=== PATIENT | female | born 1975 | race Caucasian/White ===

== ENCOUNTER → 2017-03-24 22:12 | Outpatient (CLI) | payer BC, SELFPAY ==
[2017-03-25 00:50] LABS: Chlamydia Trachomatis by PCR Negative (Negative); Neisserai gonorrhoeae by PCR Negative (Negative); Probe Check PASS; Sample Adequacy Control PASS; Specimen Processing Control PASS
[2017-03-28 08:08] LABS: HPV APTIMA, High Risk Negative (Negative)
== END ==
PROVIDERS: Visit Provider Nurse Practitioner Women's Health
DX: Z12.4 Encounter for screening for malignant neoplasm of cervix (principal); Z11.3 Encounter for screening for infections with a predominantly sexual mode of transmission
CPT/HCPCS: 87491; 87591; 88175; G0145

== ENCOUNTER → 2018-06-30 07:30 | Outpatient (CLI) | payer OTHER, SELFPAY ==
--- NOTE | 2018-06-30 07:39 | BI_ITS ---
MAMMOGRAPHY - BILATERAL SCREENING REASON FOR EXAM: Female, 43 years old. Routine annual screening examination. PERTINENT HISTORY: Grandmother with breast cancer. Remote left excisional breast biopsy. TECHNIQUE: Digital bilateral breast kirill (3D mammographic acquisition) in the CC and MLO projections. 2-D mediolateral oblique (MLO) and craniocaudad (CC) views of both breasts were obtained. CAD: Full Field Digital Mammography with Computer Added Detection was performed. COMPARISON: Comparison is made with prior study dated November 30, 2012. FINDINGS: Breast Composition: The breasts are heterogeneously dense, which may obscure small masses. There are no dominant masses or suspicious calcifications. The previously seen fat-containing nodules in the central inferior aspect of the left breast have been excised. No new abnormality is seen. No other significant abnormalities are identified. BI/SCREENING MAMM (CAD), BILAT IMPRESSION: Stable bilateral screening mammogram. Yearly follow-up mammogram recommended. (A) ASSESSMENT CATEGORY: BIRADS Category 2: Benign. A letter regarding these results will be sent to the patient by the facility within 30 days. Approximately 10% of breast cancers are not detected by mammography. A normal mammogram should not delay biopsy of a clinically suspicious abnormality. [id number] Electronically Signed: Arnulfo Staley, at 10:25 EDT , Service support ,
[2018-07-08 15:53] LABS: HPV APTIMA, High Risk Negative (Negative)
== END ==
PROVIDERS: Referring Provider Obstetrics & Gynecology; Visit Provider Obstetrics & Gynecology
DX: Z12.31 Encounter for screening mammogram for malignant neoplasm of breast (principal); R87.610 Atypical squamous cells of undetermined significance on cytologic smear of cervix (ASC-US); Z80.3 Family history of malignant neoplasm of breast
CPT/HCPCS: 77063; 77067; 87624; 88175; G0145

== ENCOUNTER → 2019-09-09 12:45 | Outpatient (CLI) | payer OTHER, SELFPAY ==
[2018-06-30 08:49] VITALS: BMI 23.5
--- NOTE | 2019-09-09 12:47 | BI_ITS ---
MAMMOGRAPHY - BILATERAL SCREENING REASON FOR EXAM: Female, 44 years old. Routine annual screening examination. PERTINENT HISTORY: Grandmother with breast cancer. History of prior left excisional breast biopsy. TECHNIQUE: Digital bilateral breast angelina (3D mammographic acquisition) in the CC and MLO projections. 2-D mediolateral oblique (MLO) and craniocaudad (CC) views of both breasts were obtained. CAD: Full Field Digital Mammography with Computer Added Detection was performed. COMPARISON: Comparison is made with prior examination dated 06/30/2018 and 11/30/2012. FINDINGS: Breast Composition: The breasts are heterogeneously dense, which may obscure small masses. There are no dominant masses or suspicious calcifications. No other significant abnormalities are identified. There has been no significant change since the prior study. BI/SCREEN MAMM (CAD) W/ANGELINA BILAT IMPRESSION: Stable bilateral screening mammogram. Yearly follow-up mammogram recommended. (A) ASSESSMENT CATEGORY: BIRADS Category 1: Negative. A letter regarding these results will be sent to the patient by the facility within 30 days. Approximately 10% of breast cancers are not detected by mammography. A normal mammogram should not delay biopsy of a clinically suspicious abnormality. [id number] Electronically Signed: Arnulfo Staley, at 14:05 EDT , Service support ,
[2019-09-15 20:21] LABS: HPV APTIMA, High Risk Negative (Negative)
== END ==
PROVIDERS: Referring Provider Nurse Practitioner Women's Health; Visit Provider Nurse Practitioner Women's Health
DX: Z12.31 Encounter for screening mammogram for malignant neoplasm of breast (principal); Z12.4 Encounter for screening for malignant neoplasm of cervix
CPT/HCPCS: 77063; 77067; 87624; 88175; G0145

== ENCOUNTER → 2020-06-30 11:35 | Outpatient (CLI) | payer OTHER, SELFPAY ==
[2020-06-30 11:05] VITALS: BMI 23.5
[2020-06-30 11:53] LABS: Absolute Lymphocyte Count 1.51 X10^3/uL (0.83-4.51); Absolute Neutrophil Count 3.6 X10^3/uL (2.0-7.7); Basophil# 0.02 X10^3/uL; Basophil% 0.4 % (0-1); Eosinophil# 0.02 X10^3/uL; Eosinophils% 0.4 % (0-5); Hematocrit 37.3 % (37-47); Hemoglobin 11.5 g/dL (12.0-15.0); Lymphocyte # 1.51 X10^3/ul (0.83-4.51); Mean Corp Hgb Conc 30.8 g/dL (32-36); Mean Corpuscular Hgb 27.1 pg (27.0-32.0); Mean Corpuscular Volume 87.8 fL (81-99); Mean Platelet Vol. 9.4 fl (6.2-12.0); Monocyte# 0.39 X10^3/uL; NRBC Flagged by Analyzer 0 % (0-5); Neutrophil # 3.63 X10^3/uL (2.7-7.7); Neutrophil % 64.8 % (47-70); Platelet Count 262 K/mm3 (150-450); RBC Distribution Width CV 13.5 % (11.6-14.6); RBC Distribution Width SD 43.7 fl (35.1-43.9); Red Blood Count 4.25 M/mm3 (4.2-5.4); White Blood Count 5.6 K/mm3 (4.4-11.0)
[2020-06-30 12:14] LABS: Thyroid Stim Hormone (TSH) 0.91 uIU/mL (0.358-3.74)
== END ==
PROVIDERS: Referring Provider Obstetrics & Gynecology; Visit Provider Obstetrics & Gynecology
DX: N92.0 Excessive and frequent menstruation with regular cycle (principal)
CPT/HCPCS: 36415; 84443; 85025

== ENCOUNTER → 2020-07-17 16:16 | Outpatient (CLI) | payer OTHER, SELFPAY ==
[2020-06-30 11:05] VITALS: BMI 23.5
--- NOTE | 2020-07-17 16:19 | US_ITS ---
STUDY: ULTRASOUND OF THE FEMALE PELVIS - COMPLETE REASON FOR EXAM: Female, 45 years old. abnormal bleeding LMP: 07/11/2020 TECHNIQUE: Transabdominal and Transvaginal TECHNICAL QUALITY: Adequate. COMPARISON: None. FINDINGS: The uterus is retroverted and is in a midline position. The uterus measures 9.3 x 6.6 x 4.3 cm. There is a Nabothian cyst of the cervix. The endometrium measures 8 mm in thickness, and is hyperechoic. 9 mm round echogenic mass within the endometrial cavity worrisome for polyp or carcinoma in correlation with hysteroscopy would be useful. There is no demonstrated myometrial mass. I.U.D. - The patient does not have an I.U.D. The right ovary is visualized. The right ovary measures 2.3 x 2.8 x 1.9 cm. There is no right ovarian cyst or ovarian mass. There is no visualized right adnexal mass or complex lesion. There is normal arterial and normal venous vascularity. The left ovary is visualized. The left ovary measures 2.2 x 1.5 x 1.2 cm. There is no left ovarian cyst or ovarian mass. There is no visualized left adnexal mass or complex lesion. There is normal arterial and normal venous vascularity. There is no fluid in the cul-de-sac. The pre void volume of the bladder was ml. The post void volume of the bladder was ml. Polycystic ovary disease: No. US/Pelvic (Non ) IMPRESSION: 9 mm endometrial mass worrisome for polyp or carcinoma. Correlation with hysteroscopy would be useful. Electronically Signed: Sonu Gentile MD at 9:16 EDT Tel , Service support ,
--- NOTE | 2020-07-17 16:19 | US_ITS ---
STUDY: ULTRASOUND OF THE FEMALE PELVIS - COMPLETE REASON FOR EXAM: Female, 45 years old. abnormal bleeding LMP: 07/11/2020 TECHNIQUE: Transabdominal and Transvaginal TECHNICAL QUALITY: Adequate. COMPARISON: None. FINDINGS: The uterus is retroverted and is in a midline position. The uterus measures 9.3 x 6.6 x 4.3 cm. There is a Nabothian cyst of the cervix. The endometrium measures 8 mm in thickness, and is hyperechoic. 9 mm round echogenic mass within the endometrial cavity worrisome for polyp or carcinoma in correlation with hysteroscopy would be useful. There is no demonstrated myometrial mass. I.U.D. - The patient does not have an I.U.D. The right ovary is visualized. The right ovary measures 2.3 x 2.8 x 1.9 cm. There is no right ovarian cyst or ovarian mass. There is no visualized right adnexal mass or complex lesion. There is normal arterial and normal venous vascularity. The left ovary is visualized. The left ovary measures 2.2 x 1.5 x 1.2 cm. There is no left ovarian cyst or ovarian mass. There is no visualized left adnexal mass or complex lesion. There is normal arterial and normal venous vascularity. There is no fluid in the cul-de-sac. The pre void volume of the bladder was ml. The post void volume of the bladder was ml. Polycystic ovary disease: No. US/Transvaginal Non- IMPRESSION: 9 mm endometrial mass worrisome for polyp or carcinoma. Correlation with hysteroscopy would be useful. Electronically Signed: Soun Gentile MD at 9:16 EDT Tel , Service support ,
== END ==
LOC: US 16:17
PROVIDERS: Referring Provider Obstetrics & Gynecology; Visit Provider Obstetrics & Gynecology
DX: N93.9 Abnormal uterine and vaginal bleeding, unspecified (principal)
CPT/HCPCS: 76830; 76856

== ENCOUNTER → 2020-07-21 13:26 | Outpatient (CLI) | payer OTHER, SELFPAY ==
--- NOTE | 2020-07-21 | EMB_PTH ---
PATIENT: SHAMIKA THOMAS LOC: [facility] U#:[id number] AGE/SX: 49/F ROOM: RE07/21/[address]: Dr. Vilma Desai MD : 1975 BED: DIS: SPEC #: [id number] RECD: 07/21/20 13:23 STATUS: ALISIA CAMDEN #: [id number] LUCY: 07/21/20 00:[address]: Vilma Desai DEPT: SURGICAL PATHOLOGY RECD BY: Jeronimo Iniguez ENTERED: 07/24/20 09:55 SP TYPE: ENDOM BX/C TERE DR: No Primary Care Phys Tissues: Endometrium, NOS Procedures: Surgery Specimen Level IV HEADER OPERATION: Endometrial biopsy PRE-OP DIAGNOSIS: Abnormal uterine bleeding TISSUE SUBMITTED: Endometrial lining MICROSCOPIC DIAGNOSIS Endometrium, biopsy: Scant fragments of lower uterine endometrium with mild cystic change. Fragments of endocervix with squamous metaplasia and mild chronic inflammation. AM:jaya 07/25/2020 MICROSCOPIC DESCRIPTION Slides are reviewed. GROSS DESCRIPTION Received is one container labeled with the patient's name and not further designated. The specimen consists of multiple fragments of hemorrhagic soft tissue mixed with mucoid tissue that in aggregate measure 5 x 3 x 0.3 cm. The entire specimen is submitted in two cassettes. / SJ:jaya 07/24/20 TC:5 CPT: 93478
[2020-07-21 10:21] VITALS: BMI 23.5
== END ==
LOC: LABSPEC 13:27
PROVIDERS: Referring Provider Obstetrics & Gynecology; Visit Provider Obstetrics & Gynecology
DX: N93.9 Abnormal uterine and vaginal bleeding, unspecified (principal)
CPT/HCPCS: 88305

== ENCOUNTER 2020-08-01 12:22 | Day surgery (SDC) | payer OTHER, SELFPAY ==
[2020-07-21 10:21] VITALS: BMI 23.5
[2020-08-01] VITALS (7 sets, daily range): BP systolic 94–115; BP diastolic 55–72; PULSE 47–62; RESP 16; TEMP 36.1–36.9; O2SAT 94–100; BMI 25.7
--- NOTE | 2020-08-01 12:46 | HP.PCM.OB_ITS ---
HPI - General HPI Narrative SHAMIKA RODRIGUEZ, is a 45 F who presents for hysteroscopy, D&C, polypectomy, endometrial ablation for abnormal uterine bleeding PFSH PFSH Medical History Alcohol use Home Medications cetirizine 10 mg tablet 10 mg PO DAILY PRN 06/30/20 [History Last Taken Unknown] Allergy/AdvReac Type Severity Reaction Status Date / Time codeine Allergy Mild Other Verified 07/21/20 10:17 Family History Unknown Breast cancer great grandmother Mother Hyperlipidemia Father Hyperlipidemia Surgical History (Updated 07/26/20 @ 09:14 by Michelle Lopez) delivery delivered Hx of wisdom tooth extraction Social History Smoking Status: Never smoker alcohol intake: current details: social substance use type: does not use caffeine: Yes what type of physical activity do you participate in: running frequency: 3-4 times per week seatbelt use: always do you feel safe at home: Yes additional social history: - Works at [employer] History 2 Elective abortions Hx Para 4 Spontaneous abortions Hx # Term Pregnancies Ectopic pregnancies Hx # Pregnancies Multiple births 1 # of living children Past Pregnancies Del. Date Name GA/Weeks Outcome Route Bth Weight Infant Gen Labor Lgth Anesthesia Del Locatn Provider FOB Unknown 1998 Olivia live - full term Unknown 2004 Ralph León Taylor live - full term [place] ROS Eyes Eyes: Reports systems reviewed and no addt'l complaints, except as documented ENT HEENT: Reports systems reviewed and no addt'l complaints, except as documented Cardiovascular Cardiovascular: Reports systems reviewed and no addt'l complaints, except as documented Respiratory/Chest Respiratory/Chest: Reports systems reviewed and no addt'l complaints, except as documented Gastrointestinal Gastrointestinal: Reports systems reviewed and no addt'l complaints, except as documented Genitourinary Genitourinary: Reports systems reviewed and no addt'l complaints, except as documented Musculoskeletal Musculoskeletal: Reports systems reviewed and no addt'l complaints, except as documented Integumentary Integumentary: Reports systems reviewed and no addt'l complaints, except as documented Neurologic Neurologic: Reports systems reviewed and no addt'l complaints, except as documented Psychiatric Psychiatric: Reports systems reviewed and no addt'l complaints, except as docum ented Endocrine Endocrinology: Reports systems reviewed and no addt'l complaints, except as documented Hematologic/Lymphatic Hematologic/Lymphatic: Reports systems reviewed and no addt'l complaints, except as documented Allergic/Immunologic Allergic/Immunologic: Reports systems reviewed and no addt'l complaints, except as documented Vital Signs Vital Signs Vital Signs: Weight Body Mass Index (BMI) 23.5 Physical Exam Const alert, oriented x3, no apparent distress, average body habitus, healthy appearing and well nourished HEENT normocephalic and moist oral mucous membranes Head and Scalp: atraumatic Eyes PERRL and EOMs intact bilaterally Neck full ROM Resp normal respiratory effort, no retractions and no use of accessory muscles Cardio regular rate and regular rhythm GI soft to palpation, non-tender and non-distended Extremity normal to inspection and full ROM Skin no rashes or lesions noted Neuro no focal motor deficits and no sensory deficits noted Psych mental status grossly normal, affect normal, speech normal and activity/motor behavior normal Labs Labs Labs: Hct 37.3 % (37-47) Hgb 11.5 g/dL (12.0-15.0) L C.trachomatis DNA (PCR) Negative (Negative) Assessment & Plan (1) Abnormal uterine bleeding (AUB): COMMENT: US and TSH ordered. Interested in ablation PLAN: Patient resents for hysteroscopy, D&C, polypectomy, endometrial ablation Ultrasound done shows 9 mm thickened area and uterine lining concerning for polyp versus carcinoma on ultrasound read. On review of images, most consistent with endometrial polyp with low suspicion for malignancy. EMB done and showed scant fragments of normal endometrium Discussed with patient that I still feel that we can proceed with hysteroscopy, D&C, polypectomy, endometrial ablation. Discussed with patient that there is always a possibility that final pathology could return with evidence of malignancy or precancerous cells. Patient is aware that if this were to happen, there is a chance that she could require a hysterectomy for treatment of this and that this would require her to be referred to a specialist Patient desires endometrial ablation. I have discussed with the patient the risks, benefits, and alternatives of the procedure which include but are not limited to risks of anesthesia, bleeding, infection, possible damage to bowel, bladder, or surrounding vasculature which could lead to additional surgery to evaluate any complications. Will obtain sampling at the time of surgery. Aware that if this were to show hyperplasia or cancer, she could require a hysterectomy for treatment. Discussed that after ablation, we will not be able to obtain reliable sampling of the endometrium which could result in delay in diagnosis of hyperplasia or cancer if this develops in the future. Discussed ris k of failure and that if she were to begin having heavy bleeding again, the next step in management would be a hysterectomy. Patient agrees to procedure and wishes to proceed.
--- NOTE | 2020-08-01 12:49 | PCM.DC ---
Discharge Instructions Diet Discharge Diet: No restrictions Activity Discharge Activity: Return to Normal Activity and May Not Drive (while taking narcotic pain medications.) May resume sexual activity in: 4 weeks (nothing in the vagina for 4 weeks.) Dressing / Incision Call your doctor if you observe: Fever of 101 or Higher and Using more than 1 pad per hour Follow Up Care Test Results: Test results from this visit will be discussed in further detail at your follow-up appointment, if applicable. Discharge Plan Admission Primary Reason for Your Visit: Endometrial ablation Attending Provider: Vilma Desai Primary Care Provider: Tony Denton,[place] Primary Instructions Patient Instructions: Endometrial Ablation Discharge Orders/Prescriptions Prescriptions: New ibuprofen 800 mg tablet 800 mg PO Q8H PRN (Reason: pain) Qty: 30 RF: 1 Continued cetirizine [Zyrtec] 10 mg tablet 10 mg PO DAILY PRN (Reason: allergies) RF: 0 Referrals / Follow Up: Care Physician,No Primary [Primary Care Provider] - Disposition Disposition (needs filled in before D/C Order can be placed): Home, Self Care
[2020-08-01] MEDS: Lactated Ringers 1,000 ML 75 ML IV (12:50)
--- NOTE | 2020-08-01 12:50 | PCM.OPRPT ---
Problems Associated Problem List Diagnoses (1) Abnormal uterine bleeding (AUB): Report of Operation Date of Procedure: 08/01/20 Pre-Operative Diagnosis: AUB, Endometrial polyp Post-Operative Diagnosis: Same Surgery/Procedure Performed:: Hysteroscopy, D&C, polypectomy, endometrial ablation Description of Surgical Findings:: Endometrial polyp, otherwise normal uterine cavity. Both tubal ostia visible. Surgeon: Vilma Desai out and out cigar maker hand: None Type of Anesthesia: MAC Specimen's removed: EMC, Polyp Estimated Blood Loss (mL): 10 Description of Procedure: Patient was taken to the operating where anesthesia with difficulty. She was prepped and draped in the dorsolithotomy position with yellowfin stirrups. A weighted speculum was placed in the posterior aspect of the vagina and the anterior lip of the cervix was grasped with a single-tooth tenaculum. Cervix was sequentially dilated to accommodate a 5 mm hysteroscope. The hysteroscope was introduced into the uterine cavity and the above findings were noted. The hysteroscope was then removed. Polyp forceps were used to remove the polyp and a sharp curettage was performed. The total cavity length was found to be 5. The Sis device was inserted into the uterine cavity and seated within the cavity. Air was introduced to create a cervical seal and the seal was noted to be adequate. The Sis device was activated and 2 safety checks were passed. The ablation was performed for 120 seconds. The Sis device was removed from the uterine cavity. The tenaculum was removed and the cervix appeared hemostatic. All instruments were removed from the vagina. The patient was awakened from anesthesia and taken to recovery room in stable condition. Complications None Admit VTE Documentation VTE Present on Admission: No VTE Mechan Device Prophylaxis: SCD's VTE Pharm Prophylaxis ordered?: No Multi Select Codes Urinary/Genital Urinary/Genital CPT Codes: 01899 Sis/Novasure and 76695 Hysteroscopy,EMC, Polypectomy
[2020-08-01 13:03] LABS: Internal QC Validated? YES +Cl - CLEAR BKGD; Pregnancy, Urine Negative Negative
[2020-08-01 13:53] LABS: Hematocrit 32.3 % (37-47); Hemoglobin 10.1 g/dL (12.0-15.0); Mean Corp Hgb Conc 31.3 g/dL (32-36); Mean Corpuscular Hgb 27.2 pg (27.0-32.0); Mean Corpuscular Volume 87.1 fL (81-99); Mean Platelet Vol. 9.5 fl (6.2-12.0); Platelet Count 247 K/mm3 (150-450); RBC Distribution Width CV 14.9 % (11.6-14.6); RBC Distribution Width SD 47.7 fl (35.1-43.9); Red Blood Count 3.71 M/mm3 (4.2-5.4); White Blood Count 4.6 K/mm3 (4.4-11.0)
--- NOTE | 2020-08-01 14:35 | EMB_PTH ---
PATIENT: SHAMIKA THOMAS LOC: [facility] U#:[id number] AGE/SX: 45/F ROOM: RE08/01/[address]: Dr. Vilma Desai MD : 1975 BED: DIS: 08/01/2020 SPEC #: [id number] RECD: 08/01/20 15:22 STATUS: ALISIA REWaldemar #: [id number] LUCY: 08/01/20 14:[address]: Vilma Desai DEPT: SURGICAL PATHOLOGY RECD BY: Leticia Manzano ENTERED: 08/02/20 07:17 SP TYPE: ENDOM BX/C TERE DR: No Primary Care Phys Tissues: Endometrium, NOS Procedures: Surgery Specimen Level IV HEADER OPERATION: Hysteroscopy, D & C, polypectomy, Sis endometrial ablation PRE-OP DIAGNOSIS: Abnormal uterine bleeding TISSUE SUBMITTED: Endometrial curettings MICROSCOPIC DIAGNOSIS Endometrium, curettings: Secretory endometrium with glandular and stromal breakdown. Rare fragments of benign superficial endocervix and squamous mucosa. AM:jaya 08/03/2020 COMMENT Case has been reviewed in consultation with Dr. Alexander who concurs with the above diagnosis. IDC:SJ MICROSCOPIC DESCRIPTION Slides are reviewed. GROSS DESCRIPTION Received in fixative is one container labeled with the patient's name and designated endometrial curettings and polyp. The specimen consists of multiple fragments of hemorrhagic soft tissue that in aggregate measure 7.5 x 0.3 x 0.1 cm. The entire specimen is submitted in three cassettes. / SJ:jaya 08/02/20 TC:5 CPT: 98491
== END 2020-08-01 15:58 | disposition home or self-care (01) ==
LOC: SDC 12:22 → AC 12:24
PROVIDERS: Anesthesiology; Referring Provider Obstetrics & Gynecology; Visit Provider Obstetrics & Gynecology
PROC: 0UB98ZZ Excision of Uterus, Via Natural or Artificial Opening Endoscopic (ICD-10-PCS; CPT 58558; principal; 2020-08-01 14:20)
PROC: 0U5B8ZZ Destruction of Endometrium, Via Natural or Artificial Opening Endoscopic (ICD-10-PCS; CPT 58558; 2020-08-01 14:20)
DX: N93.9 Abnormal uterine and vaginal bleeding, unspecified (principal); N84.0 Polyp of corpus uteri
CPT/HCPCS: 00952; 58563; 81025; 85027; 86850; 86900; 86901; 87426; 88305; C9803; J7120

== ENCOUNTER → 2022-04-19 | Outpatient (CLI) | payer BC, SELFPAY ==
[2022-04-19 12:24] LABS: Absolute Lymphocyte Count 0.97 X10^3/uL (0.83-4.51); Basophil# 0.01 X10^3/uL; Basophil% 0.3 % (0-1); Eosinophil# 0.03 X10^3/uL; Eosinophils% 0.9 % (0-5); Hematocrit 44.7 % (37-47); Hemoglobin 14.9 g/dL (12.0-15.0); Lymphocyte # 0.97 X10^3/ul (0.83-4.51); Mean Corp Hgb Conc 33.3 g/dL (32-36); Mean Corpuscular Hgb 33.7 pg (27.0-32.0); Mean Corpuscular Volume 101.1 fL (81-99); Mean Platelet Vol. 9.6 fl (6.2-12.0); Monocyte# 0.34 X10^3/uL; Monocyte% 10.1 % (0-10); NRBC Flagged by Analyzer 0 % (0-5); Neutrophil # 1.99 X10^3/uL (2.7-7.7); Neutrophil % 59.4 % (47-70); Platelet Count 229 K/mm3 (150-450); RBC Distribution Width CV 12.5 % (11.6-14.6); RBC Distribution Width SD 46.9 fl (35.1-43.9); Red Blood Count 4.42 M/mm3 (4.2-5.4); White Blood Count 3.4 K/mm3 (4.4-11.0)
[2022-04-19 12:55] LABS: Vitamin D,25 Hydroxy 106.8 ng/mL
[2022-04-19 12:58] LABS: ALB/GLOB Ratio 1.3 RATIO (0.9-2.4); AST(SGOT) 22 U/L (15-37); Alanine Aminotransfer ALT/SGPT 20 U/L (13-56); Albumin, Serum 4.1 g/dL (3.2-5.0); Alkaline Phosphatase 55 U/L (45-117); Anion Gap 6 (5-15); BUN 17 mg/dL (7-18); BUN/Creat Ratio 22.6 RATIO (10-20); Calcium,Total 9.5 mg/dL (8.5-10.1); Chloride 106 mmol/L (98-107); Cholesterol 272 mg/dL (200); Creatinine, Serum 0.75 mg/dL (0.55-1.02); EST Glomerular Filtration Rate 87 mL/min (>60); Est Glom Filt Rate - Afr Amer 106 mL/min (>60); Globulin 3.1 g/dL (2.2-4.2); Glucose 97 mg/dL (74-106); High Density Lipoprotein 85 mg/dL; Potassium 4.5 mmol/L (3.5-5.1); Protein, Total 7.2 g/dL (6.4-8.2); Sodium Level 140 mmol/L (136-145); Triglycerides 89 mg/dL; Very Low Density Lipoprotein 18 mg/dL (5-40)
== END | disposition home or self-care (01) ==
LOC: BIMLAB 08:06
PROVIDERS: PCP Internal Medicine; Referring Provider Internal Medicine; Visit Provider Internal Medicine
DX: D64.9 Anemia, unspecified (principal); Z13.6 Encounter for screening for cardiovascular disorders
CPT/HCPCS: 36415; 80053; 80061; 82306; 85025

== ENCOUNTER → 2022-05-02 | Outpatient (CLI) | payer BC, SELFPAY ==
--- NOTE | 2022-05-02 12:44 | BI_ITS ---
MAMMOGRAPHY - BILATERAL SCREENING REASON FOR EXAM: Female, 46 years old. Routine annual screening examination. PERTINENT HISTORY: Non-contributory. History of prior left excisional breast biopsy. TECHNIQUE: Digital bilateral breast angelina (3D mammographic acquisition) in the CC and MLO projections. 2-D mediolateral oblique (MLO) and craniocaudad (CC) views of both breasts were obtained. CAD: Full Field Digital Mammography with Computer Added Detection was performed. COMPARISON: Comparison is made with prior examination dated September 09, 2019 and June 30, 2018. FINDINGS: Breast Composition: The breasts are heterogeneously dense, which may obscure small masses. There are no dominant masses or suspicious calcifications. No other significant abnormalities are identified. There has been no significant change since the prior study. BI/SCRN MAMM (CAD)W/ANGELINA BILAT IMPRESSION: Stable bilateral screening mammogram. Yearly follow-up mammogram recommended. (A) ASSESSMENT CATEGORY: BIRADS Category 1: Negative. A letter regarding these results will be sent to the patient by the facility within 30 days. Approximately 10% of breast cancers are not detected by mammography. A normal mammogram should not delay biopsy of a clinically suspicious abnormality. [id number] Electronically Signed: Arnulfo Staley MD at 14:11 EDT ,
[2022-05-10 09:40] LABS: HPV APTIMA, High Risk Negative (Negative)
== END | disposition home or self-care (01) ==
PROVIDERS: PCP Internal Medicine; Referring Provider Nurse Practitioner Women's Health; Visit Provider Nurse Practitioner Women's Health
DX: Z12.31 Encounter for screening mammogram for malignant neoplasm of breast (principal)
CPT/HCPCS: 77063; 77067; 87624; 88175; G0145

== ENCOUNTER → 2022-05-07 | Outpatient (CLI) | payer BC, SELFPAY ==
--- NOTE | 2022-05-07 15:21 | CT_ITS ---
EXAM: CT CHEST WITH INTRAVENOUS CONTRAST CLINICAL INDICATION: supraclavicular adenopathy TECHNIQUE: Helically acquired images were obtained of the chest with intravenous contrast. This CT exam was performed using one or more of the following dose reduction techniques: automated exposure control, adjustment of the mA and/or kV according to patient size, and/or use of iterative reconstruction technique. This report was created using [employer] report generation technology. CONTRAST: IV 100mL Isovue-300 COMPARISON: None. FINDINGS: LUNGS AND PLEURAL SPACES: Unremarkable. No mass. No consolidation or edema. No pleural effusion or thickening. No pneumothorax. HEART: Unremarkable. Heart size is normal. No pericardial effusion. No significant coronary artery calcifications. MEDIASTINUM: Unremarkable. No mediastinal or hilar adenopathy. Esophagus is unremarkable. No hiatal hernia. THYROID: Unremarkable. No thyroid lesions. BONES/JOINTS: Unremarkable. No suspicious lytic or blastic abnormality. VASCULATURE: Unremarkable. Thoracic aorta is non-dilated. No thoracic aortic dissection. No obvious central pulmonary embolism although this study was not performed with the pulmonary embolism protocol. LIVER: There are low-density lesions seen within the liver which may represent cysts or hemangiomas. CT/Chest WITH Contrast IMPRESSION: No acute findings in the chest. Electronically Signed: Sam Son MD at 23:21 EDT ,
== END | disposition home or self-care (01) ==
LOC: CT 15:18
PROVIDERS: PCP Internal Medicine; Visit Provider Internal Medicine
DX: R59.0 Localized enlarged lymph nodes (principal)
CPT/HCPCS: 71260; Q9967

== ENCOUNTER → 2023-05-21 | Outpatient (CLI) | payer BC, SELFPAY ==
--- NOTE | 2023-05-21 13:38 | BI_ITS ---
MAMMOGRAPHY - BILATERAL SCREENING REASON FOR EXAM: Female, 48 years old. Routine annual screening examination. PERTINENT HISTORY: Non-contributory. History of prior left excisional breast biopsy. TECHNIQUE: Digital bilateral breast angelina (3D mammographic acquisition) in the CC and MLO projections. 2-D mediolateral oblique (MLO) and craniocaudad (CC) views of both breasts were obtained. CAD: Full Field Digital Mammography with Computer Added Detection was performed. COMPARISON: Comparison is made with prior study dated May 02, 2022 and September 09, 2019. FINDINGS: Breast Composition: The breasts are heterogeneously dense, which may obscure small masses. There are no dominant masses or suspicious calcifications. No other significant abnormalities are identified. There has been no significant change since the prior study. BI/SCRN MAMM (CAD)W/ANGELINA BILAT IMPRESSION: Stable bilateral screening mammogram. Yearly follow-up mammogram recommended. (A) ASSESSMENT CATEGORY: BIRADS Category 1: Negative. A letter regarding these results will be sent to the patient by the facility within 30 days. Approximately 10% of breast cancers are not detected by mammography. A normal mammogram should not delay biopsy of a clinically suspicious abnormality. [id number] Electronically Signed: Arnulfo Staley MD at 15:32 EDT ,
== END | disposition home or self-care (01) ==
LOC: OPBI 13:38
PROVIDERS: PCP Internal Medicine; Referring Provider Obstetrics & Gynecology; Visit Provider Obstetrics & Gynecology
DX: Z12.31 Encounter for screening mammogram for malignant neoplasm of breast (principal)
CPT/HCPCS: 77063; 77067

== ENCOUNTER → 2023-05-29 | Outpatient (CLI) | payer BC, SELFPAY ==
[2023-05-29 10:29] LABS: Vitamin D,25 Hydroxy 29.9 ng/mL
[2023-05-29 10:41] LABS: Cholesterol 247 mg/dL (200); Glucose 96 mg/dL (74-106); High Density Lipoprotein 81 mg/dL; T4 Free Direct 0.91 ng/dL (0.76-1.46); Thyroid Stim Hormone (TSH) 1.23 uIU/mL (0.358-3.74); Triglycerides 61 mg/dL; Very Low Density Lipoprotein 12 mg/dL (5-40)
[2023-05-30 04:07] LABS: Thyroid Peroxidase AB < 9 IU/mL (0-34)
== END | disposition home or self-care (01) ==
LOC: MTLAB 07:02
PROVIDERS: PCP Internal Medicine; Referring Provider Nurse Practitioner Women's Health; Visit Provider Nurse Practitioner Women's Health
DX: R53.83 Other fatigue (principal); E78.00 Pure hypercholesterolemia, unspecified; Z13.21 Encounter for screening for nutritional disorder; Z13.1 Encounter for screening for diabetes mellitus; Z13.220 Encounter for screening for lipoid disorders
CPT/HCPCS: 36415; 80061; 82306; 82947; 83735; 84439; 84443; 86376

== ENCOUNTER → 2024-05-25 | Outpatient (CLI) | payer BC, SELFPAY ==
[2024-05-25 16:33] LABS: Follicle Stimulating Hormone 5.4 mIU/mL
== END | disposition home or self-care (01) ==
PROVIDERS: PCP Internal Medicine; Referring Provider Nurse Practitioner Women's Health; Visit Provider Nurse Practitioner Women's Health
DX: N95.1 Menopausal and female climacteric states (principal)
CPT/HCPCS: 36415; 82670; 83001

== ENCOUNTER → 2024-05-25 | Outpatient (CLI) | payer BC, SELFPAY ==
--- NOTE | 2024-05-25 15:45 | BI_ITS ---
EXAM: SCRN MAMM (CAD)W/ANGELINA BILAT DATE: 05/25/2024 CLINICAL HISTORY: F, Age 49 y/o , SCREEN FOR BREAST CANCER No family history. Prior left excisional breast biopsy. BREAST CANCER RISK ASSESSMENT: Not assessed. TECHNIQUE: Bilateral screening digital breast tomosynthesis with 2D and 3D images. Computer aided detection. COMPARISON: Prior exam(s) dated May 21, 2023.. FINDINGS: TISSUE DENSITY: The breast tissue is composed of scattered area of fibroglandular density. Bilateral Breast Mammographic Findings: No significant masses, calcifications or other abnormalities are identified. No suspicious masses, areas of developing architectural distortion, or suspicious calcifications. There has been no significant interval change. BI/SCRN MAMM (CAD)W/ANGELINA BILAT IMPRESSION: Right Breast: BIRADS 1 NEGATIVE. Left Breast: BIRADS 1 NEGATIVE. OVERALL FINAL ASSESSMENT: BIRADS 1 NEGATIVE RECOMMENDATION: Routine annual follow-up in 1 Year A letter with findings and recommendations will be mailed to the patient. Reading Location: [place] [address]
== END | disposition home or self-care (01) ==
PROVIDERS: PCP Internal Medicine; Referring Provider Nurse Practitioner Women's Health; Visit Provider Nurse Practitioner Women's Health
DX: Z12.31 Encounter for screening mammogram for malignant neoplasm of breast (principal)
CPT/HCPCS: 77063; 77067

== ENCOUNTER → 2024-05-31 | Outpatient (CLI) | payer BC, SELFPAY ==
--- NOTE | 2024-05-31 | EMB_PTH ---
PATIENT: SHAMIKA THOMAS LOC: [facility] U#:[id number] AGE/SX: 49/F ROOM: RE05/31/[address]: NATY Raphael : 1975 BED: DIS: 05/31/2024 SPEC #: [id number] RECD: 05/31/24 16:22 STATUS: ALISIA CAMDEN #: [id number] LUCY: 05/31/24 00:[address]: Dilma Hawkins NP DEPT: SURGICAL PATHOLOGY RECD BY: Jacques High ENTERED: 06/01/24 07:22 SP TYPE: ENDOM BX/C TERE DR: Dr. Freya Lilly MD Tissues: A - Endometrium, NOS Procedures: Surgery Specimen Level IV HEADER OPERATION: Endometrial biopsy PRE-OP DIAGNOSIS: Post menopausal bleeding TISSUE SUBMITTED: A- Endometrial lining MICROSCOPIC DIAGNOSIS A. Uterus, endometrial lining, biopsy: * Disordered proliferative endometrium. * Benign endocervical epithelium. MICROSCOPIC DESCRIPTION Slides are reviewed. GROSS DESCRIPTION A. Received in formalin in a container labeled with the patient's name, date of , and with no further designation are multiple wispy fragments of possible soft tissue admixed with mucus measuring approximately 2.5 x 2.0 x 0.4 cm in aggregate. Submitted in toto in A1. [facility] 06/02/2024 CPT:04641
[2024-05-31 18:03] LABS: Vitamin D,25 Hydroxy 33.9 ng/mL (30-100)
[2024-06-02 04:07] LABS: Thyroid Peroxidase AB 10 IU/mL (0-34)
== END | disposition home or self-care (01) ==
PROVIDERS: PCP Internal Medicine; Referring Provider Nurse Practitioner Women's Health; Visit Provider Nurse Practitioner Women's Health
DX: N95.0 Postmenopausal bleeding (principal); Z13.29 Encounter for screening for other suspected endocrine disorder; R53.83 Other fatigue
CPT/HCPCS: 36415; 82306; 84439; 84443; 86376; 88305

== ENCOUNTER → 2024-06-03 | Outpatient (CLI) | payer BC, SELFPAY ==
--- NOTE | 2024-06-03 16:21 | US_ITS ---
PROCEDURE: PELVIC W/ TRANSVAGINAL 06/03/2024 REASON FOR EXAM: BLEEDING TECHNIQUE: Transabdominal pelvic ultrasound COMPARISON: None. FINDINGS: The uterus is bulky and markedly heterogeneous appearing. The uterus is retroflexed. It measures up to 8.2 by 5.8 x 5.2 cm. No discrete fibroid is noted. A 1.6 cm complex nabothian cysts is seen within the cervix. The bilateral ovaries are visualized. The right ovary measures up to 3.3 x 2.3 x 2.5 cm. The right ovary contains at least two cysts measuring up to 2.1 and 2 cm. The left ovary measures up to 3 x 2.9 x 2.7 cm and contains a cyst measuring up to 2.9 cm. Normal blood flow is seen within the bilateral ovaries. No significant fluid is seen within the cul-de-sac US/Pelvic w/ Transvaginal IMPRESSION: Marked heterogeneity of the uterus which is nonspecific but may suggest etiolog y such as adenomyosis in the appropriate clinical setting. Correlate clinically. No discrete fibroid is seen. Bilateral ovarian cysts. Complex appearing nabothian cysts within the cervix. Reading Location: [id number]
== END | disposition home or self-care (01) ==
LOC: US 16:20
PROVIDERS: PCP Internal Medicine; Referring Provider Nurse Practitioner Women's Health; Visit Provider Nurse Practitioner Women's Health
DX: N95.0 Postmenopausal bleeding (principal)
CPT/HCPCS: 76830; 76856

== ENCOUNTER → 2024-07-21 | Outpatient (CLI) | payer BC, SELFPAY ==
--- NOTE | 2024-07-21 14:19 | US_ITS ---
PROCEDURE: PELVIC W/ TRANSVAGINAL REASON FOR EXAM: OVARIAN CYSTS Follow-up. TECHNIQUE: Transabdominal and transvaginal pelvic ultrasound COMPARISON: Prior study June 03 FINDINGS: Measurements: Uterus: 10.6 cm x 6 cm x 4.9 cm with a volume of 164.6 mL Endometrial Thickness: 6 mm. It is hyperechoic. Right Ovary: 5.7 cm x 3.1 cm x 2.4 cm with a volume of 0.31 mL. Left Ovary: 2.6 cm x 1.7 cm x 1.3 cm with a volume of 2.55 mL. TRANSABDOMINAL: Uterus: Stable heterogeneous appearance of the posterior fundal portion of the uterus suggestive of possible fibroid. This measures 3.3 cm x 3.9 cm x 2.4 cm. This is unchanged. Endometrium: 6 mm Right ovary: Once again, there are 2 complex cysts in the right ovary. The larger measures 2.9 cm 2.4 cm 2 cm. Internal echoes as well as septations are seen. Left ovary: Normal size and echotexture. Other: No large pelvic mass identified. Transvaginal sonography was performed to better visualize the endometrium. TRANSVAGINAL: Uterus: Retroverted. Heterogeneous appearance of the posterior aspect of the fundal portion of the uterus. Endometrium: Normal echotexture. Right ovary: Stable complex cysts in the right ovary. Left ovary: Normal size and echotexture. Other adnexal findings: None. Cul-de-sac: No free intraperitoneal fluid identified. Tenderness: No tenderness US/Pelvic w/ Transvaginal IMPRESSION: Heterogeneous appearance of the fundal portion of the uterus as described. Stable complex cysts in the right ovary. Reading Location: [id number]
== END | disposition home or self-care (01) ==
LOC: US 14:17
PROVIDERS: PCP Internal Medicine; Referring Provider Nurse Practitioner Women's Health; Visit Provider Nurse Practitioner Women's Health
DX: N83.209 Unspecified ovarian cyst, unspecified side (principal)
CPT/HCPCS: 76830; 76856

== ENCOUNTER → 2024-10-30 | Outpatient (CLI) | payer BC, SELFPAY ==
--- NOTE | 2024-10-30 11:07 | US_ITS ---
PROCEDURE: THYROID 10/30/2024 REASON FOR EXAM: THYROID ENLARGEMENT TECHNIQUE: Procedure Code: USTHY Modality: US Procedure: THYROID COMPARISON: None FINDINGS: Right thyroid lobe size: 5.9 cm 1.5 cm 1.3 cm Left thyroid lobe size: 5.5 cm 1.6 cm 1.2 cm Isthmus: 0.2 cm Background parenchymal echotexture is homogeneous. Nodules: Scattered subcentimeter colloid cysts in the right lobe. . Lobe: Left, Location: Lateral and inferior, Size: 0.7 cm 0.4 cm x 0.4 cm, Stability: N/A Composition: Mixed cystic and solid (+1) Echogenicity: Hypoechoic (+2) Margin: Smooth (+0) Shape: Wider than tall (+0) Echogenic Foci: None (+0) TI-RADS: 3 Similar-appearing nodule is seen in the midpole measuring 6 mm x 5 mm x 2 mm. Tie rads category 3. US/Thyroid IMPRESSION: Mild enlargement of the thyroid gland. There are 2 subcentimeter complex nodules in the left lobe of the thyroid as de scribed. TI-RADS category 3. Sonographic follow-up recommended. RECOMMENDATION: Based on most suspicious nodule. Nodule size = largest diameter Only evaluate nodule if =>5 mm. Growth > 20% in 2 dimensions = worsening. Follow up to 4 nodules. Recommend biopsy for no more than 2 nodules. Reading Location: [place] [id number]
--- OUTSIDE RECORDS SUMMARY | 2024-10-30 11:08 | XMS RPT_ITS | CCD ---
Author Organization [facility] Care Team Providers Care Feed Crusher Operator Name Role Phone Eloy STEAM CLEAN MACHINE OPERATOR, STEAM CLEAN MACHINE OPERATOR-C Mimi Primary Care Provider U chas Eloy STEAM CLEAN MACHINE OPERATOR, STEAM CLEAN MACHINE OPERATOR-C Mimi Referring Provider Unav ailable Dr. Freya Lilly Attending Provider [phone] Shruthi STEAM CLEAN MACHINE OPERATOR, STEAM CLEAN MACHINE OPERATOR-C Dilma Attending Provider [phone] Dr. Freya Lilly Primary Care Provider Dr. Freya Lilly Primary Care Provider Dr. Freya Lilly Referring Provider [phone] RODRIGO Danielle Attending Provider [place] STEAM CLEAN MACHINE OPERATOR, STEAM CLEAN MACHINE OPERATOR-C Dilma Attending Provider Dr. Freya Lilly MD Primary Care Provider [phone] Dr. Freya Lilly MD Referring Provider Shruhti STEAM CLEAN MACHINE OPERATOR-C, Dilma Attending Provider Shruthi STEAM CLEAN MACHINE OPERATOR-C, Dilma Referring Provider Dr. Freya Lilly MD Primary Care Provider [place] STEAM CLEAN MACHINE OPERATOR-C, Dilma Attending Provider Shruthi STEAM CLEAN MACHINE OPERATOR-C, Dilma Referring Provider Vijaya HANNAH, Dr. Pillai Referring Provider Caleb Hernandez Attending Provider Freya Lilly Primary Care Unavailable Shruthi STEAM CLEAN MACHINE OPERATOR, Dilma Referring Unavailable Shruthi STEAM CLEAN MACHINE OPERATOR, Dilma Attending Unavailable Freya Lilly Primary Care Unavailable Shruthi STEAM CLEAN MACHINE OPERATOR, Dilma Referring Unavailable [place] STEAM CLEAN MACHINE OPERATOR, Dilma Attending Unavailable Oceana, Freya Primary Care Unavailable Timt PA, Caleb Attending Unavailable Kusum PA, Caleb Referring Unavailable Vijaya, Freya Primary Care Unavailable Shruthi STEAM CLEAN MACHINE OPERATOR, Dilma Referring Unavailable [place] STEAM CLEAN MACHINE OPERATOR, Dilma Attending Unavailable Shruthi STEAM CLEAN MACHINE OPERATOR, Dilma Attending Unavailable Oceana, Freya Primary Care Unavailable Oceana, Freya Referring Unavailable Oceana, Freya Referring Unavailable [place] STEAM CLEAN MACHINE OPERATOR, Dilma Attending Unavailable Vijaya, Freya Primary Care Unavailable [place] STEAM CLEAN MACHINE OPERATOR, Dilma Attending Unavailable Shruthi STEAM CLEAN MACHINE OPERATOR, Dilma Referring Unavailable [place]ceana, Freya Primary Care Unavailable Srhuthi STEAM CLEAN MACHINE OPERATOR, Dilma Attending Unavailable [place] STEAM CLEAN MACHINE OPERATOR, Dilma Referring Unavailable Ivjaya, Freya Primary Care Unavailable Vijaya, Freya Primary Care Unavailable Wayt PA, Caleb Attending Unavailable [place]ce[place], Freya Referring Unavailable Allergies Allergy Classification Reported Allergen(s) Allergy Type Date of Onset Reaction(s) Facility (9 sources) Codeine Drug Allergy 3 Other, Vomiting [facility] (1 source) Codeine Drug Allergy 5 [facility] Repository Medications Current Medications Medication Drug Class(es) Dates Sig (Normalized) Sig (Original) cetirizine hydrochloride 10 mg oral tablet (9 sources) Histamine-1 Receptor Antagonist Start: 07-01-19 21 take 1 tablet by mouth once daily as needed Cetirizine (Zyrtec) 10 mg tablet Active 10 mg PO DAILY as needed for allergies June 30, 2020 12:00am fluticasone propionate 0.05 mg/actuat metered dose nasal spray (2 sources) Corticosteroid Start: 06-01-19 25 take 50 ug nasal route once daily Fluticasone Propionate (Flonase Allergy Relief) 50 mcg/actuation spray,suspension Active 1 NMA INTRANASAL daily May 31, 2024 12:00am administer into each nostril ibuprofen 800 mg oral tablet (9 sources) Nonsteroidal Anti-inflammatory Drug Start: 08-02-19 21 take 1 tablet by mouth every eight hours as needed for pain Ibuprofen 800 mg tablet Active 800 mg PO Q8H as needed for pain 30 August 01, 2020 12:00am medroxyPROGESTERone acetate 10 mg oral tablet (4 sources) Progestin Start: 06-15-19 take 1 tablet by mouth every 30 days Medroxyprogesterone 10 mg tablet Active 10 mg PO daily 10 10 3 June 14, 2024 12:00am take every 30 days to induce menses Start: 06-03-2024 End: 06-13-2024 take 1 tablet by mouth once daily Medroxyprogesterone 10 mg tablet Discontinued 10 mg PO daily 10 10 0 June 03, 2024 12:00am June 12, 2024 12:00am June 13, 2024 12:09am Multivitamin preparation (5 sources) Start: 04-18-2022 take 1 tablet by mouth once daily Multivitamin Active 1 TABLET PO DAILY April 18, 2022 1:00am Multivitamin tablet (4 sources) Start: 04-18-2022 Multivitamin t ablet Active 1 {tbl} PO DAILY April 18, 2022 1:00am Completed/Discontinued Medications Medication Drug Class(es) Dates Sig (Normalized) Sig (Original) ascorbic acid 500 mg oral capsule (9 sources) Vitamin C Start: 03-24-2017 End: 06-30-2020 Ascorbic Acid (Vitamin C) 500 mg capsule Discontinued mg PO 0 March 24, 2017 1:00am June 30, 2020 11:03am Start: 03-24-2017 End: 06-30-2020 Ascorbic Acid (Vitamin C) Di scontinued MG PO March 24, 2017 1:00am June 30, 2020 11:03am azithromycin 250 mg oral tablet (9 sources) Macrolide Antimicrobial Start: 02-22-2021 End: 04-18-2022 Azithromycin 250 mg tablet Discontinued 250 mg PO As Directed 6 0 February 22, 2021 1:00am April 18, 2022 3:17pm Infection 2 tabs day one, then 1 tab daily for 4 days until finished. cholecalciferol 0.025 mg oral capsule (9 sources) Vitamin D Start: 06-30-2018 End: 06-30-2020 take 1 capsule by mouth once daily Cholecalciferol (Vitamin D3) 1,000 unit capsule Discontinued 1000 U PO DAILY June 30, 2018 12:00am June 30, 2020 11:03am Magnesium (9 sources) Start: 06-30-2018 End: 06-30-2020 take 1 tablet by mouth once daily Magnesium 250 mg tablet Discontinued 250 mg PO DAILY June 30, 2018 12:00am June 30, 2020 11:03am Start: 06-30-2018 End: 06-30-2020 take 250 mg by mouth once daily Magnesium Discontinued 250 MG PO DAILY June 30, 2018 12:00am June 30, 2020 11:03am Multivitamin,Ek-Waie-Hnjyfmu s (Complete Multivitamin) tablet (4 sources) Start: 03-24-2017 End: 06-30-2020 Multivitamin,Yo-Gtpa-Jkdecfk s (Complete Multivitamin) tablet Discontinued 1 {tbl} PO daily March 24, 2017 1:00am June 30, 2020 11:03am multivitamin,rs-tclz-ycizkio s tablet (5 sources) Start: 03-24-2017 End: 06-30-2020 take 1 tablet by mouth once daily multivitamin,ij-rktb-krjgbnpu tablet Discontinued 1 TABLET PO daily March 24, 2017 1:00am June 30, 2020 11:03am Problems Active Problems Problem Classification Problem Date Documented Date Episodic/Chronic Administrative/social admission (3 sources) Persons encountering health services in other specified circumstances; Translations: [Other reasons for seeking consultation] 04-18-2022 Episodic Attention-deficit, conduct, and disruptive behavior disorders (6 sources) Concern about breast appearance; Translations: [Other symptoms and signs involving appearance and behavior] 05-21-2023 Episodic Comment on above: normal breast exam. offered ultrasound for reassurance. pt declines. mammogram in 04/2022 normal. Attention-deficit, conduct, and disruptive behavior disorders (2 sources) Other symptoms and signs involving appearance and behavior; Translations: [Other general symptoms] 02-04-2023 Episodic Cancer of cervix (11 sources) Atypical squamous cells of undetermined significance on cervical Papanicolaou smear; Translations: [Atypical squamous cells of undetermined significance on cytologic smear of cervix (ASC-US)] 09-16-2019 Episodic Comment on above: 2019:rpt was 2022 an d neg pap/HPV Deficiency and other anemia (3 sources) Anemia, unspecified; Translations: [Anemia, unspecified] 04-18-2022 Episodic Disorders of lipid metabolism (8 sources) Hypercholesterolemia; Translations: [Pure hypercholesterolemia, unspecified] 05-21-2023 Chronic Lymphadenitis (3 sources) Localized enlarged lymph nodes; Translations: [Enlargement of lymph nodes] 04-18-2022 Episodic Menopausal disorders (10 sources) Postmenopausal bleeding; Translations: [Postmenopausal bleeding] Onset: 05-27-2024 05-25-2024 Chronic Comment on above: US, EMB Nonmalignant breast conditions (9 sources) Breast lump; Translations: [Unspecified lump in unspecified breast] 04-18-2022 Episodic Other connective tissue disease (3 sources) Medial epicondylitis; Translations: [Medial epicondylitis, right elbow] 04-18-2022 Episodic Other connective tissue disease (6 sources) Medial epicondylitis of right humerus; Translations: [Medial epicondylitis, right elbow] 04-18-2022 Episodic Comment on above: She has no pain with extension of the right elbow and testing is negative for tendonitis. This is a [facility] case. No restrictions as form [facility]-14 and she may return to work with full duties. I have spent at least 20 minutes today reviewing labs, records, and history. Time includes coordinating care, interpretation of tests, and counseling patient/family/significant others. This also includes time that I spent with the patient for exam, treatment plan and education as well as documenting clinical information in the electronic medical record. Patient verbalized understanding of education and instructions. Questions and concerns were answered and addressed. This note was generated with [employer] dictation software. It may contain incorrect words, spelling, and punctuation that were not noted in checking the note before signing. Other female genital disorders (9 sources) Abnormal uterine bleeding; Translations: [Abnormal uterine and vaginal bleeding, unspecified] 08-02-2020 Chronic Comment on above: US and TSH ordered. Interested in ablation Other upper respiratory infections (9 sources) Sinusitis; Translations: [Chronic sinusitis, unspecified] 04-18-2022 Chronic Other upper respiratory infections (9 sources) Pharyngitis; Translations: [Acute pharyngitis, unspecified] 04-18-2022 Episodic Residual codes; unclassified (9 sources) History of endometrial ablation; Translations: [Other specified postprocedural states] 08-02-2020 Episodic Residual codes; unclassified (3 sources) Immunization not carried out because of patient refusal; Translations: [Vaccination not carried out because of patient refusal] 04-18-2022 Episodic Thyroid disorders (6 sources) Goiter; Translations: [Iodine-deficiency related diffuse (endemic) goiter] Onset: 10-22-2024 10-22-2024 Chronic Past or Other Problems Problem Classification Problem Date Documented Da te Episodic/Chronic Malaise and fatigue (10 sources) Fatigue; Translations: [Other fatigue] Onset: 05-31-2024 05-21-2023 Episodic Other screening for suspected conditions (not mental disorders or infectious disease) (7 sources) Encounter for screening for malignant neoplasm of colon; Translations: [Special screening for malignant neoplasms of colon] Onset: 05-27-2024 04-18-2022 Episodic Ovarian cyst (3 sources) Cyst of ovary; Translations: [Unspecified ovarian cyst, unspecified side] Onset: 07-23-2024 06-07-2024 Episodic Comment on above: rpt US 6 wks Results Test Name Value Interpretation Reference Range Facility Internal Medicine Office Vis iton 10-22-2024 Internal Medicine Office Visit [facility] [address] [place] [address] [place] [address] OFFICE VISIT Date of Service: 10/22/24 MR#: [id number] Acct: [id number] Name: SHAMIKA THOMAS Rep #: [id number] : 1975 Provider: JOSEPH Melchor Age/Sex: 49/F Location: [facility] Status: Signed Intake Vital Signs 05/31/24 15:09 10/22/24 14:33 Height 5 ft 7 in 5 ft 7 in Weight: 195 lb BMI 30.5 BP 114/74 Blood Pressure Location Lt brachial Position Sitting Respiration 18 Pulse 86 Pulse Source Monitor Temp 96.2 F L Temp Source Temporal Pulse Oximetry (%) 95 Oxygen Delivery Method room air Intake Visit Reasons: ENLARGED THYROID - KEEP 1 HOUR Bale Coverer Required: No Accompanied by: Self Is patient in pain?: No Allergies codeine Adverse Reaction (Mild, Verified 10/22/24 14:28) Vomiting Medications ???Medication ???Instructions ???Recorded ???Confirmed ???Type cetirizine 10 mg tablet (Zyrtec) 10 mg PO DAILY PRN allergies 06/3010/22/24 History ibuprofen 800 mg tablet 800 mg PO Q8H PRN pain #30 tabs 10/22/24 Rx multivitamin 1 tab PO DAILY 04/18/22 10/22/24 H istory fluticasone propionate 50 1 spray intranasal QDAY 05/31/24 0 10/22/24 History mcg/actuation nasal spray,suspension (Flonase Allergy Relief) medroxyprogesterone 10 mg tablet 10 mg PO QDAY take every 30 days 0 06/14/24 10/22/24 Rx to induce menses 10 days #10 tabs PFSH Medical History Breast lump Alcohol use ASCUS of cervix with negative high risk HPV Surgical History History of breast lump removal History of endometrial ablation H/O cervical polypectomy H/O dilation and curettage Hx of wisdom tooth extraction delivery delivered Family History Unknown Breast cancer great grandmother Mother Hypertension Father Hyperlipidemia Hypertension Grandmother Breast cancer great grandmother Social History household members: spouse and children current occupational status: employed current occupation: [employer] Smoking Status: Former smoker quit date: 08/10/21 pack-years: 1 Electronic Cigarette Use: not used alcohol intake: current alcohol intake frequency: holidays/special occasions only details: social substance use type: does not use caffeine: Yes what type of physical activity do you participate in: running frequency: 3-4 times per week seatbelt use: always do you feel safe at home: Yes 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 She states that she noticed that she felt like pills were getting stuck in her throat when she would take them and that was not normal for her. She states that is when she looked and noticed enlargement. She states that she is lluvia / pre menopause and so she has a lot of hormone symptoms. There is not family history of thyroid disease or autoimmune disease. ROS Const Constitutional: Positive for excessive sweating (occasional, hot flashed), fatigue, decreased energy, night sweats (occasional) and weight change (weight gain); No body ache, chills, fever(s), frequent falls, headache(s), snoring, weakness, sleep problems or change in appetite Eyes Eyes: Positive for change in vision; No blurry vision, eye pain or Light sensitivity ENT ENT: No abnormal hearing, ear or mastoid pain, tinnitus, dizziness/vertigo, balance problems, nasal congestion, headache(s), hoarseness, neck pain or sore throat Resp Respiratory: No cough, shortness of breath, snoring or wheezing Cardio Cardiology: Positive for excessive sweating (occasional, hot flashed); No chest pain at rest, chest pain with exertion, shortness of breath, dyspnea on exertion, lightheadedness, orthopnea, palpitations or other (no leg swelling) Gastro GI: No abdominal pain, change in bowel habits, constipation, cramping, diarrhea, Vomiting blood/hematemesis or vomiting Genitourinary-Female: No difficulty urinating, burning urination, painful urination, urinary incontinence, blood in urine or absent period Musc Musculoskeletal: No abnormal gait, joint pain, back pain, limited range of motion, neck pain, numbness or tingling Skin Skin: Positive for change in hair (thinning) and other (swollen node on right collar bone); No dry skin, redness, lesions, itchy eyes, rash or wounds Breast Breast: No change in breast shape, breast lump, breast pain, breast skin changes, breast swelling or nipple discharge Neuro Neurology: No abnormal gait, abnormal hearing, dizz (more content not included)... Normal [facility] Pelvic w/ Transvaginalon Pelvic w/ Transvaginal [facility] [address], [place] [address] Pelvic w/ Transvaginal MR#: [id number] Acct: [id number] Name: SHAMIKA THOMAS Rep #: [id number] : 1975 F 49 From: Arnulfo logan MD PCP: Dr. Freya Lilly MD Status: [facility] Study: Pelvic w/ Transvaginal Date of Exam: 07/21/24 Exam# [id number] Ordering Dr: Dilma Hawkins STEAM CLEAN MACHINE OPERATOR STEAM CLEAN MACHINE OPERATOR -C PROCEDURE: PELVIC W/ TRANSVAGINAL REASON FOR EXAM: OVARIAN CYSTS Follow-up. TECHNIQUE: Transabdominal and transvaginal pelvic ultrasound COMPARISON: Prior study June 03 FINDINGS: Measurements: Uterus: 10.6 cm x 6 cm x 4.9 cm with a volume of 164.6 mL Endometrial Thickness: 6 mm. It is hyperechoic. Right Ovary: 5.7 cm x 3.1 cm x 2.4 cm with a volume of 0.31 mL. Left Ovary: 2.6 cm x 1.7 cm x 1.3 cm with a volume of 2.55 mL. TRANSABDOMINAL: Uterus: Stable heterogeneous appearance of the posterior fundal portion of the uterus suggestive of possible fibroid. This measures 3.3 cm x 3.9 cm x 2.4 cm. This is unchanged. Endometrium: 6 mm Right ovary: Once again, there are 2 complex cysts in the right ovary. The larger measures 2.9 cm 2.4 cm 2 cm. Internal echoes as well as septations are seen. Left ovary: Normal size and echotexture. Other: No large pelvic mass identified. Transvaginal sonography was performed to better visualize the endometrium. TRANSVAGINAL: Uterus: Retroverted. Heterogeneous appearance of the posterior aspect of the fundal portion of the uterus. Endometrium: Normal echotexture. Right ovary: Stable complex cysts in the right ovary. Left ovary: Normal size and echotexture. Other adnexal findings: None. Cul-de-sac: No free intraperitoneal fluid identified. Tenderness: No tenderness US/Pelvic w/ Transvaginal IMPRESSION: Heterogeneous appearance of the fundal portion of the uterus as described. Stable complex cysts in the right ovary. Reading Location: [id number] CC: NATY Hawkins; Dr. Freya Lilly MD Aluminum Siding Installer: Signed Normal [facility] Pelvic w/ Transvaginalon Pelvic w/ Transvaginal [facility] [address] [place], [place] [address] Pelvic w/ Transvaginal MR#: [id number] Acct: [id number] Name: WILLIAMSHAMIKA KATZ Rep #: [id number] : 1975 F 49 From: Marek Cheek i, MD PCP: Dr. Freya Lilly MD Status: REG CLI Study: Pelvic w/ Transvaginal Date of Exam: 06/03/24 Exam# [id number] Ordering Dr: Dilma Hawkins NP, NP -Sophie ADDENDUM by Dr. Marek Glez MD on 06/04/24 at 0447 Endometrial stripe measures up to 4.3 mm. Reading Location: [facility] 06/04/24 0448 Date cc: NATY Hawkins; Dr. Freya Lilly MD * Signed PROCEDURE: PELVIC W/ TRANSVAGINAL 06/03/2024 REASON FOR EXAM: BLEEDING TECHNIQUE: Transabdominal pelvic ultrasound COMPARISON: None. FINDINGS: The uterus is bulky and markedly heterogeneous appearing. The uterus is retroflexed. It measures up to 8.2 by 5.8 x 5.2 cm. No discrete fibroid is noted. A 1.6 cm complex nabothian cysts is seen within the cervix. The bilateral ovaries are visualized. The right ovary measures up to 3.3 x 2.3 x 2.5 cm. The right ovary contains at least two cysts measuring up to 2.1 and 2 cm. The left ovary measures up to 3 x 2.9 x 2.7 cm and contains a cyst measuring up to 2.9 cm. Normal blood flow is seen within the bilateral ovaries. No significant fluid is seen within the cul-de-sac US/Pelvic w/ Transvaginal IMPRESSION: Marked heterogeneity of the uterus which is nonspecific but may suggest etiology such as adenomyosis in the appropriate clinical setting. Correlate clinically. No discrete fibroid is seen. Bilateral ovarian cysts. Complex appearing nabothian cysts within the cervix. Reading Location: [facility] CC: NATY Hawkins; Dr. Freya Lilly MD Aluminum Siding Installer: Signed Normal [facility] Thyroid Peroxidase ABon 05-12 THYR PEROX AB 10 IU/mL Normal 0-34 [facility] Comment on above: Result Comment: Perf ormed at: - [facility] [address] [id number] [employer] Room Custodian: Antoine Hennessy PhD, Phone: [phone] Performed By: #### L 2279.0473, L833.0331, R397.6461, N606.2561 #### [facility] [address] [place], [place], [id number] [facility] Office Visit Reporton 05-31-2024 [facility] Office Visit Report [facility] [address], [address] [place] [address] OFFICE VISIT Date of Service: 05/31/24 MR#: [id number] Acct: [id number] Name: SHAMIKA THOMAS Rep #: [id number] : 1975 Provider: NATY cabrales Age/Sex: 49/F Location: [facility] Status: Signed Intake Vital Signs 05/25/24 14:41 05/31/24 15:03 05/31/24 15:09 Height 5 ft 7 in 5 ft 7 in 5 ft 7 in Weight: 194 lb 2 oz BMI 30.4 BP 130/82 H Intake Visit Reasons: EMB (PER BM) Chief Complaint: EMB Bale Coverer Required: No Is patient in pain?: No Allergies codeine Allergy (Mild, Verified 05/31/24 15:11) Other Medications ???Medication ???Instructions ???Recorded ???Confirmed ???Type cetirizine 10 mg tablet (Zyrtec) 10 mg PO DAILY PRN allergies 06/3005/31/24 History ibuprofen 800 mg tablet 800 mg PO Q8H PRN pain #30 tabs 05/31/24 Rx multivitamin 1 tab PO DAILY 04/18/22 05/31/24 H istory fluticasone propionate 50 1 spray intranasal QDAY 05/31/24 0 05/31/24 History mcg/actuation nasal spray,suspension (Flonase Allergy Relief) Is last menstrual period known: No Post menopausal: Yes Patient : No : No Control Method: Spouse vasectomy PFSH PFSH Medical History Breast lump Alcohol use ASCUS of cervix with negative high risk HPV Surgical History History of breast lump removal History of endometrial ablation H/O cervical polypectomy H/O dilation and curettage Hx of wisdom tooth extraction delivery delivered Family History Unknown Breast cancer great grandmother Mother Hypertension Father Hyperlipidemia Hypertension Grandmother Breast cancer great grandmother Social History household members: spouse and children current occupational status: employed current occupation: [employer] Smoking Status: Former smoker quit date: 08/10/21 pack-years: 1 Electronic Cigarette Use: not used alcohol intake: current alcohol intake frequency: holidays/special occasions only details: social substance use type: does not use caffeine: Yes what type of physical activity do you participate in: running frequency: 3-4 times per week seatbelt use: always do you feel safe at home: Yes 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 Date Name GA/Weeks Outcome Route Bth Weight Gen Labor Lgth Anesthesia Del Locatn Provider FOB Unknown 1998 [place] live - full term Unknown 2004 Ralph León Taylor live - full term [place] HPI EMB (PER BM) Details: SHAMIKA THOMAS is a 49 year old who presents for endometrial biopsy. ROS Const Constitutional: Reports system reviewed and no additional complaints, except as documented Eyes Eyes: Reports system reviewed and no additional complaints, except as documented GI GI: Denies abdominal pain or change in bowel habits : Reports as per HPI Exam Const General: cooperative and no acute distress Orientation: oriented x3 General: bladder normal to palpation External Female Exam: normal external appearance and normal appearance of the urethra Urethra: normal appearance of the urethra Speculum Exam - Vagina: normal appearance of the vagina, normal vaginal discharge, no lesions and nontender Speculum Exam - Cervix: normal appearance of the cervix Bimanual Exam- Vagina Uterus: normal bimanual exam, uterine size normal, bladder normal to palpation, uterine shape normal, uterine mobility normal and non-tender Bimanual Exam- Adnexa, other: normal adnexae, no masses and non-tender Office Procedures Endometrial Biopsy Endometrial Biopsy Test: Yes Not Applicable Consent Signed: Yes Time out checklist: patient, procedure, site marked/identified, positioning of patient, supplies available, allergies confirmed and team agrees on procedure Time out time: 15:12 tenaculum used: No dilator used: No Details: Cervix prepped with betadine and pipelle inserted 7cm into uterus without complication. Specimen obtained and sent to lab for analysis. All instruments removed from vagina without complications. Excellent hemostasis noted. Coding Level of Care Code Attention Loki Diagnoses Postmenopausal bleeding N95.0 Fatigue, unspecified type R53.83 Fatigue type: unspecified (more content not included)... Normal [facility] Serum or plasma thyroperoxid ase antibody assay (units/volume)Ordered By: Dilma Hawkins on 05-31-2024 TPO Ab Qn 10 [IU]/mL 0-34 [facility] Comment on above: Performed at: [facility] [address] [id number] Director: Antoine Hennessy PhD, Phone: [phone] Surgery Specimen Level Mira 05-31-2024 Surgery Specimen Level IV -------- Patient Age/Sex Location Account Attending Physician -------- [facility] 49[facility] [id number] NATY Raphael -------- Specimen: [id number] Received: 05/31/24 Status: ALISIA Ríos Num: [id number] Spec Type: JUSTUS CASTAÑEDA/Sophie Engel Dr: NATY Raphael HEADER OPERATION: Endometrial biopsy PRE-OP DIAGNOSIS: Post menopausal bleeding TISSUE SUBMITTED: A- Endometrial lining -------- MICROSCOPIC DIAGNOSIS A. Uterus, endometrial lining, biopsy: * Disordered proliferative endometrium. * Benign endocervical epithelium. MICROSCOPIC DESCRIPTION Slides are reviewed. GROSS DESCRIPTION A. Received in formalin in a container labeled with the patient's name, date of , and with no further designation are multiple wispy fragments of possible soft tissue admixed with mucus measuring approximately 2.5 x 2.0 x 0.4 cm in aggregate. Submitted in toto in A1. [facility] 06/02/2024 CPT:08846 -------- Patient Age/Sex Location Account Attending Physician -------- SH[facility] 49[facility] [id number] NATY Raphael -------- Signed (signature on file) Dr. Yaima Leone MD 06/02/24 1619 -------- Normal [facility] Comment on above: Performed By: #### P JOSEPH ####[facility] [address] [facility] [place], [address] T4 Free Directon 05-31-2024 T4 FREE DIRECT 1.20 ng/dL Normal 0.76-1.46 [facility] Comment on above: Performed By: #### L 3300.6900, L501.9520, L506.1001, L506.0400 #### [facility] [address] [place], [place], [id number] T4 freeOrdered By: Dilma aleman on 05-31-2024 Free T4 [Mass/Vol] 1.20 ng/dL 0.76-1.46 [facility] TSH DL <= 0.005 mIU/L QnOrde red By: Dilma Hawkins on 05-31-2024 TSH Qn 2.950 uIU/mL 0.300-4.200 [facility] Thyroid Stim Hormone (TSH)on 05-31-2024 TSH 2.950 uIU/mL Normal 0.300-4.200 [facility] Comment on above: Performed By: #### L 3300.6900, L501.9520, L506.1001, L506.0400 #### [facility] [address] [place], [place], [id number] Vitamin D,25 Hydroxyon 05-31 Vitamin D 25-OH 33.9 ng/mL Normal 30-100 [facility] Comment on above: Result Comment: Seema min D Status Deficiency: <20 ng/mL (50nmol/L) Insufficiency: 20-30 ng/mL (50-75 nmol/L) Sufficiency: 30-100 ng/mL (75-250 nmol/L) Toxicity: >100 ng/mL (>250 nmol/L) Performed By: #### L 3300.6900, L501.9520, L506.1001, L506.0400 #### [facility] [address] [place], [place], [id number] Breast imaging reportOrdered By: Arnulfo Staley on 05-26-2024 Study report [facility] [address] [place], [place] [address] SCRN MAMM (CAD)W/ANGELINA BILAT MR#: [id number] Acct: [id number] Name: SHAMIKA THOMAS Rep #: [id number] : 1975 F 49 From: Pierre Staley MD PCP: Dr. Freya Lilly MD Status: REG CLI Study:SCRN MAMM (CAD)W/ANGELINA BILAT Date of Exa m: 05/25/24 Exam# [id number] Ordering Dr: Dilma Hawkins NP STEAM CLEAN MACHINE OPERATOR-C EXAM: SCRN MAMM (CAD)W/ANGELINA BILAT DATE: 05/25/2024 CLINICAL HISTORY: F, Age 49 y/o , SCREEN FOR BREAST CANCER No family history. Prior left excisional breast biopsy. BREAST CANCER RISK ASSESSMENT: Not assessed. TECHNIQUE: Bilateral screening digital breast tomosynthesis with 2D and 3D images. Computeraided detection. COMPARISON: Prior exam(s) dated May 21, 2023.. FINDINGS: TISSUE DENSITY: The breast tissue is composed of scattered area of fibroglandular density. Bilateral Breast Mammographic Findings: No significant masses, calcifications or other abnormalities are identified. No suspicious masses, areas of developing architectural distortion, or suspicious calcifications. There has been no significant interval change. BI/SCRN MAMM (CAD)W/ANGELINA BILAT IMPRESSION: Right Breast: BIRADS 1 NEGATIVE. Left Breast: BIRADS 1 NEGATIVE. OVERALL FINAL ASSESSMENT: BIRADS 1 NEGATIVE RECOMMENDATION: Routine annual follow-up in 1 Year A letter with findings and recommendations will be mailed to the patient. Reading Location: [facility] CC: NATY Hawkins; Dr. 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: Signed [facility] E2 post dose follitropin [Ma ss/Vol]Ordered By: Dilma Hawkins on 05-25-2024 Estradiol (E2) Level 239.0 pg/mL [facility] Comment on above: FEMALES ADULT FEMALE : Premenopausal: 15-350 pg/mL(E2 levels vary widely through the menstrual cycle) Postmenopausal: <10 pg/mL CAMRON STAGES MEAN AGE REFERENCE RANGES Stage I(>14 days and prepubertal) 7.1 years Undetectable-20 pg/mLL Stage II 10.5 years Undetectable-24 pg/mL Stage III 11.6 years Undetectable-60 pg/mL Stage IV 12.3 years 15-85 pg/mL Stage V 14.5 years 15-350 pg/mL Puberty onset (transition from Camron stage I to Camron stage II) occurs for girls at a median age of 10.5 (/- 2) years. There is evidence that it may occur up to 1 year earlier in obese girls and in girls.Progression through Camron stages is variable. Camron stage V (adult) should be reached by age 18. Estradiolon 05-25-2024 ESTRADIOL 239.0 pg/mL Normal [facility] Comment on above: Result Comment: FEMA LES ADULT FEMALE: Premenopausal: 15-350 pg/mL(E2 levels vary widely through the menstrual cycle) Postmenopausal: <10 pg/mL CAMRON STAGES MEAN AGE REFERENCE RANGES Stage I(>14 days and prepubertal) 7.1 years Undetectable-20 pg/mLL Stage II 10.5 years Undetectable-24 pg/mL Stage III 11.6 years Undetectable-60 pg/mL Stage IV 12.3 years 15-85 pg/mL Stage V 14.5 years 15-350 pg/mL Puberty onset (transition from Camron stage I to Camron stage II) occurs for girls at a median age of 10.5 (/- 2) years. There is evidence that it may occur up to 1 year earlier in obese girls and in girls. Progression through Camron stages is variable. Camron stage V (adult) should be reached by age 18. Performed By: #### L 3300.1750, L3100.5125 ####[facility] [address] [place], [place], [address] Follicle Stimulating Hormone on 05-25-2024 FSH 5.4 mIU/mL Normal [facility] Comment on above: Result Comment: FEMA LE: Follicular: 1.4 - 18.1 mIU/mL Midcycle: 3.4 - 33.4 mIU/mL Luteal: 1.5 - 9.1 mIU/mL Post Menopause: 23.0 - 116.3 mIU/mL MALE: 1.4 - 18.1 mIU/mL NORMAL REFERENCE RANGES FEMALE FOLLICULAR 2.3 - 12.6 mIU/mL MID-CYCLE PEAK 5.2 - 17.5 mIU/mL LUTEAL 1.7 - 12.9 mIU/mL POST-MENOPAUSAL ON MHT 5.9 - 72.8 mIU/mL NOT ON MHT 12.7 - 132.2 mlU/mL MALE 0.7 - 10.8 mIU/mL Performed By: #### L 3300.1750, L3100.5125 ####[facility] [address] [place], [address] Follicle stimulating hormone (FSH) levelOrdered By: Dilma Hawkins on 05-25-2024 Follicle Stimulating Hormone 5.4 mIU/mL [facility] Comment on above: FEMALE:Follicular: 1 .4 - 18.1 mIU/mLMidcycle: 3.4 - 33.4 mIU/mLLuteal: 1.5 - 9.1 mIU/mLPost Menopause: 23.0 - 116.3 mIU/mLMALE: 1.4 - 18.1 mIU/mL NORMAL REFERENCE RANGES FEMALE FOLLICULAR 2.3 - 12.6 mIU/mL MID-CYCLE PEAK 5.2 - 17.5 mIU/mL LUTEAL 1.7 - 12.9 mIU/mL POST-MENOPAUSAL ON MHT 5.9 - 72.8 mIU/mL NOT ON MHT 12.7 - 132.2 mlU/mL MALE 0.7 - 10.8 mIU/mL [employer] Office Visit Reporton 05-25-2024 [employer] Office Visit Report [facility] [address], [address] [place] [address] OFFICE VISIT Date of Service: 05/25/24 MR#: [id number] Acct: [id number] Name: SHAMIKA THOMAS Rep #: [id number] : 1975 Provider: NATY cabrales Age/Sex: 49/F [place] [facility] [place] Status: Signed Intake Vital Signs 05/21/23 13:17 05/25/24 14:35 05/25/24 14:41 Height 5 ft 7 in 5 ft 7 in 5 ft 7 in Weight: 197 lb 2 oz BMI 30.9 BP 122/84 H 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 Bale Coverer Required: No Is patient in pain?: No Allergies codeine Allergy (Mild, Verified 05/25/24 14:34) Other Medications ???Medication ???Instructions ???Recorded ???Confirmed ???Type cetirizine 10 mg tablet (Zyrtec) 10 mg PO DAILY PRN allergies 06/3005/25/24 History ibuprofen 800 mg tablet 800 mg PO Q8H PRN pain #30 tabs 05/25/24 Rx multivitamin 1 tab PO DAILY 04/18/22 05/25/24 H istory Is last menstrual period known: No Post menopausal: Yes Patient : No : No PFSH Medical History Breast lump Alcohol use ASCUS of cervix with negative high risk HPV Surgical History History of breast lump removal History of endometrial ablation H/O cervical polypectomy H/O dilation and curettage Hx of wisdom tooth extraction delivery delivered Family History Unknown Breast cancer great grandmother Mother Hypertension Father Hyperlipidemia Hypertension Grandmother Breast cancer great grandmother Social History household members: spouse and children current occupational status: employed current occupation: [employer] Smoking Status: Former smoker quit date: 08/10/21 pack-years: 1 Electronic Cigarette Use: not used alcohol intake: current alcohol intake frequency: holidays/special occasions only details: social substance use type: does not use caffeine: Yes what type of physical activity do you participate in: running frequency: 3-4 times per week seatbelt use: always do you feel safe at home: Yes 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 Date Name GA/Weeks Outcome Route Bth Weight Gen Labor Lgth Anesthesia Del Locatn Provider FOB Unknown 1998 Olivia live - full term Unknown 2004 Ralph León Taylor live - full term [facility] Encounter for routine gynecological examination Details: SHAMIKA THOMAS is a 49 year old who presents for annual exam. No menses X >1 year and started spotting 2 days ago and continues. Light in amount. Denies pain. Was having hot flashes but stop ped about 6 mo ago. Was using "yam cream" but stopped that about 2 weeks ago Last PAP: 2022 History of abnormal PAP: no Last mammogram: 05/2023 History of abnormal mammogram: no Colon cancer screening: brendan 2022 Other preventative health care screenings: Eitan Gutierrez Constitutional: Denies fatigue, weight gain or weight loss Cardio Card: Denies chest pain Resp Resp: Denies cough or dyspnea on exertion GI GI: Denies abdominal pain, bloating, change in stool character, constipation or vomiting : Reports as per HPI; Denies difficulty voiding, pelvic pain, urinary frequency, urinary incontinence, urinary urgency, vaginal discharge or vaginal pruritus Exam Const General: cooperative, healthy appearing, no acute distress and well developed Orientation: alert, oriented to person and oriented to place HENOH Head: normal to inspection Neck Neck: normal visual inspection Thyroid: thyroid normal Lymphatic: no lymphadenopathy noted Chest Breast inspection: normal inspection of the breasts and normal inspection of the axillae Breast palpation: normal palpation of the breasts, normal palpation of the axillae and no axillary lymphadenopathy Resp Effort Inspection: normal respiratory effort GI Palpation: soft, no masses and nontender Rectal Exam: deferred External Female Exam: normal external appearance and normal appearance of the urethra Urethra: normal appearance of the urethra and normal palpation Speculum Exam - Vagina: normal appearance of the vagina and normal vaginal discharge (small amount dark red blood in vault) Speculum Exam - Cervix: normal appearance of the cervix Bimanual Exam- Vagina Uterus: normal bimanual exam, uterin (more content not included)... Normal [facility] SCRN MAMM (CAD)W/ANGELINA BILATo n 05-25-2024 SCRN MAMM (CAD)W/ANGELINA BILAT [facility] Imaging Services [address] [place] [address] SCRN MAMM (CAD)W/ANGELINA BILAT MR#: [id number] Acct: [id number] Name: SHAMIKA THOMAS Rep #: [id number] : 1975 F 49 From: Arnulfo logan MD PCP: Dr. Freya Lilly MD Status: [facility] Study: SCRN MAMM (CAD)W/ANGELINA BILAT Date of Exam: 05/11 07/04 Exam# [id number] Ordering Dr: Dilma Hawkins NP STEAM CLEAN MACHINE OPERATOR -C EXAM: SCRN MAMM (CAD)W/ANGELINA BILAT DATE: 05/25/2024 CLINICAL HISTORY: F, Age 49 y/o , SCREEN FOR BREAST CANCER No family history. Prior left excisional breast biopsy. BREAST CANCER RISK ASSESSMENT: Not assessed. TECHNIQUE: Bilateral screening digital breast tomosynthesis with 2D and 3D images. Computer aided detection. COMPARISON: Prior exam(s) dated May 21, 2023.. FINDINGS: TISSUE DENSITY: The breast tissue is composed of scattered area of fibroglandular density. Bilateral Breast Mammographic Findings: No significant masses, calcifications or other abnormalities are identified. No suspicious masses, areas of developing architectural distortion, or suspicious calcifications. There has been no significant interval change. BI/SCRN MAMM (CAD)W/ANGELINA BILAT IMPRESSION: Right Breast: BIRADS 1 NEGATIVE. Left Breast: BIRADS 1 NEGATIVE. OVERALL FINAL ASSESSMENT: BIRADS 1 NEGATIVE RECOMMENDATION: Routine annual follow-up in 1 Year A letter with findings and recommendations will be mailed to the patient. Reading Location: [place] [address] CC: STEAM CLEAN MACHINE OPERATORGary Hawkins; Dr. Freya Lilly MD Aluminum Siding Installer: Signed Normal [facility] Serum or plasma estradiol me asurement after follitropin dose (mass/volume)Ordered By: Dilma Hawkins on 05-25-2024 E2 post dose follitropin [Mass/Vol] 239.0 pg/mL [facility] Comment on above: FEMALES ADULT FEMALE : Premenopausal: 15-350 pg/mL(E2 levels vary widely through the menstrual cycle) Postmenopausal: <10 pg/mL CAMRON STAGES MEAN AGE REFERENCE RANGES Stage I(>14 days and prepubertal) 7.1 years Undetectable-20 pg/mLL Stage II 10.5 years Undetectable-24 pg/mL Stage III 11.6 years Undetectable-60 pg/mL Stage IV 12.3 years 15-85 pg/mL Stage V 14.5 years 15-350 pg/mL Puberty onset (transition from Camron stage I to Camron stage II) occurs for girls at a median age of 10.5 (/- 2) years. There is evidence that it may occur up to 1 year earlier in obese girls and in girls.Progression through Camron stages is variable. Camron stage V (adult) should be reached by age 18. Basophil percentageOrdered B y: Dilma Hawkins on 05-29-2023 Cholesterol [Mass/Vol] 247 mg/dL <200 [facility] Comment on above: <200 mg/dL Desirable 200-240 mg/dL Borderline >240 mg/dL High Risk Glucose [Mass/Vol] 96 mg/dL 74-106 [facility] Triglyceride [Mass/Vol] 61 mg/dL <199 [facility] Comment on above: The drugs N-Acetylcy steine and Metamizole may falsely depress this assay.Serum Triglycerides Reference Interval Normal <150 mg/dL Borderline high 150 - 199 mg/dL High 200 - 499 mg/dL Very High > or = 500 mg/dL Laboratory - Chemistry and C hemistry - challengeOrdered By: Dilma Hawkins on 05-29-2023 Cholesterol in HDL [Mass/Vol] 81 mg/dL >40 [facility] Comment on above: The drugs N-Acetylcy steine and Metamizole may falsely depress this assay. Reference Range HDL <40 mg/dL Low HDL Cholesterol HDL >or= 60 mg/dL High HDL Cholesterol Cholesterol in LDL [Mass/Vol] 154 mg/dL 0-130 [facility] Magnesium [Mass/Vol] 2.0 mg/dL 1.6-2.6 [facility] No Panel InformationOrdered By: Dilma Hawkins on 05-29-2023 Vitamin D 25-Hydroxy 29.9 ng/mL [facility] Comment on above: Vitamin D 25(OH) Sta tus Range Deficiency <20 ng/mL (50nmol/L) Insufficiency 20 - 30 ng/mL (50 - 75 nmol/L) Sufficiency 30 - 100 ng/mL (75 - 250 nmol/L) Toxicity >100 ng/mL (>250 nmol/L) VLDL Cholesterol 12 mg/dL 5-40 [facility] Serum or plasma thyroid stim ulating hormone (TSH) measurement (units/volume)Ordered By: Dilma Hawkins on 05-29-2023 TSH Qn 1.23 uIU/mL 0.358-3.74 [facility] Serum or plasma thyroperoxid ase antibody assay (units/volume)Ordered By: Dilma Hawkins on 05-29-2023 TPO Ab Qn [IU]/mL 0-34 [facility] Comment on above: Performed at: [address] [id number] Director: Antoine Hennessy PhD, Phone: [phone] Thin prep Papanicolaou smear with manual screeningOrdered By: Dilma Hawkins on 05-29-2023 Thin prep Papanicolaou smear with manual screening 0.91 ng/dL 0.76-1.46 [facility] Cervical or vagninal specime n microscopic examination by cytology stain (reported asOrdered By: Dilma Hawkins on 05-02-2022 Cytology report Cyto stain Doc (Cvx/Vag) Comment . [facility] Comment on above: The Pap smear is a s creening test designed to aid in thedetection of premalignant and malignant conditions of theuterine cervix. It is not a diagnostic procedure andshould not be used as the sole means of detecting cervicalcancer. Both false-positive and false-negative reports dooccur. Detection in cervical specim en of any of human papilloma virus (HPV) 16, 18, 31, 33,Ordered By: Dilma Hawkins on 05-02-2022 HPV 16+18+31+33+35+39+45+51 +52+56+58+59+66+68 DNA Probe+sig amp Ql (Cvx) Negative Negative [facility] Comment on above: This nucleic acid am plification test detects fourteen high-risk HPV types (16,18,31,33,35,39,45,51,52,56,58,59,66,68)without differentiation. Laboratory - CytologyOrdered By: Dilma Hawkins on 05-02-2022 Certified Registered Nurse Anesthetist Cyto stain Nom (Cvx/Vag) [ID] Comment . [facility] Comment on above: Marcellus Frank totechnologist (ASCP) Laboratory - Miscellaneous t estsOrdered By: Dilma Hawkins on 05-02-2022 Service comment (Unsp spec) [Interp] Comment . [facility] Comment on above: This liquid based Th inPrep(R) pap test was screened withthe use of an image guided system. Service comment (Unsp spec) [Interp] . . [facility] Liquid-based cerv Pap + CT/G C by EUGENIA w reflex to high-risk HPV for ASCUSOrdered By: Dilma Hawkins on 05-02-2022 Cytology report Cyto stain.thin prep Doc (Cvx/Vag) Comment . [facility] Comment on above: Criteria not met, HP V Genotype not performed.Performed at: [facility] [id number] Director: Louise Wood MD, Phone: [phone] at: =[facility] - [facility] [id number] Director: Louise Wood MD, Phone: [phone] No Panel InformationOrdered By: Dilma Hawkins on 05-02-2022 Pathology report final diagnosis Narrative Comment . [facility] Comment on above: NEGATIVE FOR INTRAEP ITHELIAL LESION OR MALIGNANCY. Absolute lymphocyte countOrd ered By: Dr. Lilly on 04-19-2022 Lymphocytes Auto (Unsp spec) [#/Vol] 0.97 10*3/uL 0.83-4.51 [facility] Basophil percentageOrdered B y: Dr. Lilly on 04-19-2022 Basophils/100 WBC (Bld) 0.3 % 0-[address] [facility] Bilirubin [Mass/Vol] 1.00 mg/dL 0.20-1.00 [facility] Comment on above: For patients on eltr ombopag therapy, use of Dimension [place] TBIL is not recommended. Chloride [Moles/Vol] 106 mmol/L 98-107 [facility] Cholesterol [Mass/Vol] 272 mg/dL <200 [facility] Comment on above: <200 mg/dL Desirable 200-240 mg/dL Borderline >240 mg/dL High Risk Eosinophils/100 WBC (Bld) 0.9 % 0-5 [facility] Glucose [Mass/Vol] 97 mg/dL 74-106 [facility] Neutrophils (Bld) [#/Vol] 2.0 10*3/uL 2.0-7.7 [facility] Neutrophils/100 WBC (Bld) 59.4 % 47-70 [facility] Potassium [Moles/Vol] 4.5 mmol/L 3.5-5.1 [facility] Protein [Mass/Vol] 7.2 g/dL 6.4-8.2 [facility] Sodium [Moles/Vol] 140 mmol/L 136-145 [facility] Triglyceride [Mass/Vol] 89 mg/dL <199 [facility] Comment on above: The drugs N-Acetylcy steine and Metamizole may falsely depress this assay.Serum Triglycerides Reference Interval Normal <150 mg/dL Borderline high 150 - 199 mg/dL High 200 - 499 mg/dL Very High > or = 500 mg/dL WBC (Bld) [#/Vol] 3.4 10*3/uL 4.4-11.0 [facility] Blood erythrocytes count (nu mber/volume)Ordered By: Dr. Lilly on 04-19-2022 RBC (Bld) [#/Vol] 4.42 10*6/uL 4.2-5.4 [facility] Blood hemoglobin measurement (mass/volume)Ordered By: Dr. Lilly on 04-19-2022 Hemoglobin (Bld) [Mass/Vol] 14.9 g/dL 12.0-15.0 [facility] Blood lymphocytes/100 leukoc ytesOrdered By: Dr. Lilly on 04-19-2022 Lymphocytes/100 WBC (Bld) 29.0 % 19-41 [facility] Blood monocytes/100 leukocyt esOrdered By: Dr. Lilly on 04-19-2022 Monocytes/100 WBC (Bld) 10.1 % 0-[address] [facility] Blood platelet mean volumeOr dered By: Dr. Lilly on 04-19-2022 Platelet mean volume (Bld) [Entitic vol] 9.6 fL 6.2-12.0 [facility] Determination of erythrocyte mean corpuscular volume (MCV)Ordered By: Dr. Lilly on 04-19-2022 MCV (RBC) [Entitic vol] 101.1 fL 81-99 [facility] Hematocrit Auto (Bld) [Volum e fraction]Ordered By: Dr. Lilly on 04-19-2022 Hematocrit (Bld) [Volume fraction] 44.7 % 37-47 [facility] Laboratory - Chemistry and C hemistry - challengeOrdered By: Dr. Lilly on 04-19-2022 ALP [Catalytic activity/Vol] 55 U/L 45-117 [facility] ALT [Catalytic activity/Vol] 20 U/L 13-56 [facility] CO2 [Moles/Vol] 28.0 mmol/L 21.0-32.0 [facility] Globulin (S) [Mass/Vol] 3.1 g/dL 2.2-4.2 [facility] Urea nitrogen/Creatinine [Mass ratio] 22.6 mg/mg 10-20 [facility] Laboratory - Hematology and Cell countsOrdered By: Dr. Lilly on 04-19-2022 Erythrocyte distribution width (RBC) [Entitic vol] 46.9 fL 35.1-43.9 [facility] Erythrocyte distribution width (RBC) [Ratio] 12.5 % 11.6-14.6 [facility] Immature granulocytes/100 WBC (Bld) 0.300 % 0.0-0.9 [facility] Comment on above: IG% - Immature Granu locytes (promyelocytes, myelocytes and metamyelocytes) > 1% indicates that a LEFT SHIFT is Present. MCH (RBC) [Entitic mass] 33.7 pg 27.0-32.0 [facility] Nucleated RBC/100 WBC (Bld) [Ratio] 0 % 0-5 [facility] MCHC Auto (RBC) [Mass/Vol]Or dered By: Dr. Lilly on 04-19-2022 MCHC (RBC) [Mass/Vol] 33.3 g/dL 32-36 [facility] No Panel InformationOrdered By: Dr. Lilly on 04-19-2022 Estimated GFR (MDRD) Amer 106 mL/min >60 [facility] Comment on above: GFR Calc Estimated GFR (MDRD) Non-Af Amer 87 mL/min >60 [facility] Comment on above: Non- GFR Calc Vitamin D 25-Hydroxy 106.8 ng/mL [facility] Comment on above: Vitamin D 25(OH) Sta tus Range Deficiency <20 ng/mL (50nmol/L) Insufficiency 20 - 30 ng/mL (50 - 75 nmol/L) Sufficiency 30 - 100 ng/mL (75 - 250 nmol/L) Toxicity >100 ng/mL (>250 nmol/L)Evidence suggests that patients undergoing fluorescein dye angiography can retain small amounts of fluorescein in the body for up to 48 to 72 hours post-treatment. In the cases of patients with renal insufficiency, retention could be much longer. Samples containing fluorescein can produce falsely elevated values when tested with the [employer]ia Centaur Vitamin D assay. With fluorescein interference, observed Vitamin D values can be as high as >150 ng/mL (>375 nmol/L). Samples should be resubmitted post fluorescein clearance to ensure there is no interference with Vitamin D test results. Platelets bldOrdered By: Dr. Lilly on 04-19-2022 Platelets (Bld) [#/Vol] 229 10*3/uL 150-450 [facility] Serum or plasma albumin hilton urement (mass/volume)Ordered By: Dr. Lilly on 04-19-2022 Albumin [Mass/Vol] 4.1 g/dL 3.2-5.0 [facility] Serum or plasma albumin/glob ulin mass ratioOrdered By: Dr. Lilly on 04-19-2022 Albumin/Globulin [Mass ratio] 1.3 {ratio} 0.9-2.4 [facility] Serum or plasma calcium hilton urement (mass/volume)Ordered By: Dr. Lilly on 04-19-2022 Calcium [Mass/Vol] 9.5 mg/dL 8.5-10.1 [facility] Serum or plasma cholesterol in HDL measurement (mass/volume)Ordered By: Dr. Lilly on 04-19-2022 Cholesterol in HDL [Mass/Vol] 85 mg/dL >40 [facility] Comment on above: The drugs N-Acetylcy steine and Metamizole may falsely depress this assay. Reference Range HDL <40 mg/dL Low HDL Cholesterol HDL >or= 60 mg/dL High HDL Cholesterol Serum or plasma cholesterol in VLDL measurement (mass/volume)Ordered By: Dr. Lilly on 04-19-2022 Cholesterol in VLDL [Mass/Vol] 18 mg/dL 5-40 [facility] Serum or plasma creatinine m easurement (mass/volume)Ordered By: Dr. Lilly on 04-19-2022 Creatinine [Mass/Vol] 0.75 mg/dL 0.55-1.02 [facility] Comment on above: The validity of the calculated GFR & GFRAA in patients over 70 years has not been determined. Clinical correlation is essential. Serum or plasma low density lipoprotein (LDL) cholesterol measurement (mass/volume)Ordered By: Dr. Lilly on 04-19-2022 Cholesterol in LDL [Mass/Vol] 169 mg/dL 0-130 [facility] Serum or plasma urea nitroge n measurement (mass/volume)Ordered By: Dr. Lilly on 04-19-2022 Urea nitrogen [Mass/Vol] 17 mg/dL 7-18 [facility] Thin prep Papanicolaou smear with manual screeningOrdered By: Dr. Lilly on 04-19-2022 Thin prep Papanicolaou smear with manual screening 22 U/L 15-37 [facility] Thin prep Papanicolaou smear with manual screening 6 5-15 [facility] Vital Signs Date Time Vital Sign Value Performing Clinician Faci lity 10-22-2024 14:33-0400 Body height 170.[address] Freya Lilly MD Work Phone: [facility] 10-22-2024 14:33-0400 Body mass index (BMI) [Ratio] 30.5 kg/m2 Dr. Freya Lilly MD Work Phone: [facility] 10-22-2024 14:33-0400 Body temperature 96.2 [degF] Dr. Freya Lilly MD Work Phone: [facility] 10-22-2024 14:33-0400 Body weight 88.[address] Freya Lilly MD Work Phone: [facility] 10-22-2024 14:33-0400 Diastolic blood pressure 74 mm[Hg] Dr. Freya Lilly MD Work Phone: [facility] 10-22-2024 14:33-0400 Heart rate 86 /min Dr. Freya Lilly MD Work Phone: [facility] 10-22-2024 14:33-0400 Respiratory rate 18 /min Dr. Freya Lilly MD Work Phone: [facility] 10-22-2024 14:33-0400 SaO2% (BldA) [Mass fraction] 95 % Dr. Freya Lilly MD Work Phone: [facility] 10-22-2024 14:33-0400 Systolic blood pressure 114 mm[Hg] Dr. Freya Lilly MD Work Phone: [facility] 05-31-2024 15:09-0400 Body height 170.[address] Freya Lilly MD Work Phone: [facility] 05-31-2024 15:03-0400 Body mass index (BMI) [Ratio] 30.4 kg/m2 Dr. Freya Lilly MD Work Phone: [facility] 05-31-2024 15:03-0400 Body weight 88.[address] Freya Lilly MD Work Phone: [facility] 05-31-2024 15:03-0400 Diastolic blood pressure 82 mm[Hg] Dr. Freya Lilly MD Work Phone: [facility] 05-31-2024 15:03-0400 Systolic blood pressure 130 mm[Hg] Dr. Freya Lilly MD Work Phone: [facility] 05-25-2024 14:41-0400 Body height 170.[address] Freya Lilly MD Work Phone: [facility] 05-25-2024 14:35-0400 Body mass index (BMI) [Ratio] 30.9 kg/m2 Dr. Freay Lilly MD Work Phone: [facility] 05-25-2024 14:35-0400 Body weight 89.[address] Freya Lilly MD Work Phone: [facility] 05-25-2024 14:35-0400 Diastolic blood pressure 84 mm[Hg] Dr. Freya Lilly MD Work Phone: [facility] 05-25-2024 14:35-0400 Systolic blood pressure 122 mm[Hg] Dr. Freya Lilly MD Work Phone: [facility] 05-21-2023 13:17-0400 Body height 170.[address] Freya Lilly Work Phone: [facility] 05-21-2023 13:12-0400 Body mass index (BMI) [Ratio] 28.3 kg/m2 Dr. Freya Lilly Work Phone: [facility] 05-21-2023 13:12-0400 Body weight 82.[address] Freya Lilly Work Phone: [facility] 05-21-2023 13:12-0400 Diastolic blood pressure 82 mm[Hg] Dr. Freya Lilly Work Phone: [facility] 05-21-2023 13:12-0400 Systolic blood pressure 124 mm[Hg] Dr. Freya Lilly Work Phone: [facility] 02-04-2023 09:00-0500 Body mass index (BMI) [Ratio] 28.3 kg/m2 Dr. Freya Lilly Work Phone: [facility] 02-04-2023 09:00-0500 Body weight 82.[address] Freya Lilly Work Phone: [facility] 02-04-2023 09:00-0500 Diastolic blood pressure 87 mm[Hg] Dr. Freya Lilly Work Phone: [facility] 02-04-2023 09:00-0500 Systolic blood pressure 132 mm[Hg] Dr. Freya Lilly Work Phone: [facility] 05-02-2022 13:23-0400 Body height 170.18 cm STEAM CLEAN MACHINE OPERATOR-C Mimi Tickton [facility] 05-02-2022 13:18-0400 Body mass index (BMI) [Ratio] 27.6 kg/m2 STEAM CLEAN MACHINE OPERATOR-Sophie Lyons [facility] 05-02-2022 13:18-0400 Body weight 79.88 kg STEAM CLEAN MACHINE OPERATOR-Sophie Lyons [facility] 05-02-2022 13:18-0400 Diastolic blood pressure 80 mm[Hg] STEAM CLEAN MACHINE OPERATOR-Sophie Lyons [facility] 05-02-2022 13:18-0400 Systolic blood pressure 124 mm[Hg] STEAM CLEAN MACHINE OPERATOR-Sophie Lyons [facility] 04-18-2022 14:24-0500 Body height 170.18 cm -Sophie Lyons [facility] 04-18-2022 14:24-0500 Body mass index (BMI) [Ratio] 26.4 kg/m2 -Sophie Lyons [facility] 04-18-2022 14:24-0500 Body temperature 97.4 [degF] STEAM CLEAN MACHINE OPERATOR-Sophie Lyons [facility] 04-18-2022 14:24-0500 Body weight 76.65 kg -Sophie Lyons [facility] 04-18-2022 14:24-0500 Diastolic blood pressure 80 mm[Hg] STEAM CLEAN MACHINE OPERATOR-Sophie Lyons [facility] 04-18-2022 14:24-0500 Heart rate 89 /min -Sophie Lyons [facility] 04-18-2022 14:24-0500 Respiratory rate 18 /min -Sophie Lyons [facility] 04-18-2022 14:24-0500 SaO2% (BldA) [Mass fraction] 98 % -Sophie Lyons [facility] 04-18-2022 14:24-0500 Systolic blood pressure 128 mm[Hg] -Sophie Kernyun [facility] Encounters Encounter Date Encounter Type Care Provider Facility Start: 10-30-2024 ambulatory Freya Vijaya Facility :[facility] Start: 10-22-2024 End: 10-22-2024 Patient encounter procedure Caleb RUIZ -[facility] Work Phone: Start: 10-22-2024 End: 10-22-[address] Freya Lilly MD Work Phone: -[facility] Start: 07-21-2024 End: 07-21-[address] Freya Lilly MD Work Phone: [facility] Work Phone: Start: 07-21-2024 End: 07-21-2024 Patient encounter procedure Dilma Shurthi STEAM CLEAN MACHINE OPERATOR-C -Ultrasound [facility] Work Phone: Start: 07-21-2024 End: 07-21-2024 ambulatory Freya Cerdalay Facility:[facility] Start: 06-03-2024 End: 06-03-2024 Patient encounter procedure Dilma Shruthi STEAM CLEAN MACHINE OPERATOR-C -Ultrasound [facility] Work Phone: Start: 06-03-2024 End: 06-03-2024 ambulatory Freya Lilly Facility:[facility] Start: 05-31-2024 End: 05-31-2024 Patient encounter procedure Dilmadaja Carvalhos STEAM CLEAN MACHINE OPERATOR-C -[facility] Work Phone: Start: 05-31-2024 End: 05-31-2024 ambulatory Dilma [place] STEAM CLEAN MACHINE OPERATOR Facility:[facility] Start: 05-31-2024 End: 05-31-2024 ambulatory Freya Lilly Facility:[facility] Start: 05-25-2024 Encounter for gynecological examination (general) (routine) with abnormal findings Dilma Hawkins STEAM CLEAN MACHINE OPERATOR [facility] Start: 05-25-2024 End: 05-25-2024 Patient encounter procedure Dilma [place] STEAM CLEAN MACHINE OPERATOR-C -[facility] Work Phone: Start: 05-25-2024 End: 05-25-2024 Patient encounter status Dilma [place] STEAM CLEAN MACHINE OPERATOR-C [facility] Start: 05-25-2024 End: 05-25-[address] Freya Lilly MD Work Phone: [facility] Work Phone: Start: 05-25-2024 End: 05-25-2024 ambulatory Dilma Hawkins STEAM CLEAN MACHINE OPERATOR Facility:[facility] Start: 05-29-2023 End: 05-29-[address] Freya Lilly Work Phone: [facility] Work Phone: Start: 05-29-2023 End: 05-29-[address] Freya Lilly Work Phone: [facility] Work Phone: Start: 05-21-2023 End: 05-21-[address] Freya Lilly Work Phone: [facility] Work Phone: Start: 05-21-2023 End: 05-21-[address] Freya Lilly Work Phone: [facility] Work Phone: Start: 02-04-2023 End: 02-04-[address] Freya Lilly Work Phone: [facility] Work Phone: Start: 05-07-2022 End: 05-07-2022 ambulatory STEAM CLEAN MACHINE OPERATOR-C Mimi Lyons [facility] Work Phone: Start: 05-07-2022 End: 05-07-2022 Patient encounter procedure STEAM CLEAN MACHINE OPERATOR-Sophie Lyons STEAM CLEAN MACHINE OPERATOR [facility] Start: 05-02-2022 End: 05-02-2022 ambulatory STEAM CLEAN MACHINE OPERATOR-Sophie Lyons STEAM CLEAN MACHINE OPERATOR [facility] Work Phone: Start: 05-02-2022 End: 05-02-2022 Patient encounter procedure STEAM CLEAN MACHINE OPERATOR-Sophie Lyons STEAM CLEAN MACHINE OPERATOR [facility] Start: 04-19-2022 End: 04-19-2022 ambulatory STEAM CLEAN MACHINE OPERATOR-C Mimi Lyons STEAM CLEAN MACHINE OPERATOR [facility] Work Phone: Start: 04-19-2022 End: 04-19-2022 Patient encounter procedure STEAM CLEAN MACHINE OPERATOR-Sophie Lyons NP [facility], [facility] Start: 04-18-2022 End: 04-18-2022 Patient encounter procedure STEAM CLEAN MACHINE OPERATOR-Sophie Lyons NP [facility] Internal Medicine Procedures Date Procedure Procedure Detail Performing Clinician Start: 07-21-[address] Contreras Lilly MD Work Phone: Start: 06-03-[address] Contreras Lilly MD Work Phone: Start: 05-31-2024 Vitamin D, 25-hydrox y measurement Dr. Freya Lilly MD Work Phone: Comment on above: Vitamin D StatusDefi ciency: <20 ng/mL (50nmol/L)Insufficiency: 20-30 ng/mL (50-75 nmol/L)Sufficiency: 30-100 ng/mL (75-250 nmol/L)Toxicity: >100 ng/mL (>250 nmol/L) Start: 05-25-2024 Screening mammography Bora Lilly MD Work Phone: Start: 05-25-2024 Follicle stimulating hormone measurement Dr. Freya Lilly MD Work Phone: Comment on above: FEMALE:Follicular: 1 .4 - 18.1 mIU/mLMidcycle: 3.4 - 33.4 mIU/mLLuteal: 1.5 - 9.1 mIU/mLPost Menopause: 23.0 - 116.3 mIU/mLMALE: 1.4 - 18.1 mIU/mL NORMAL REFERENCE RANGES FEMALE FOLLICULAR 2.3 - 12.6 mIU/mL MID-CYCLE PEAK 5.2 - 17.5 mIU/mL LUTEAL 1.7 - 12.9 mIU/mL POST-MENOPAUSAL ON MHT 5.9 - 72.8 mIU/mL NOT ON MHT 12.7 - 132.2 mlU/mL MALE 0.7 - 10.8 mIU/mL Start: 05-21-2023 Screening mammography Bora Lilly Work Phone: Start: 05-07-2022 CT of thorax with contrast NATY Lyons STEAM CLEAN MACHINE OPERATOR Start: 05-02-2022 Screening mammography N PGary Lyons NP H/O: surgery H/O cervical polypectomy NATY Lyons NP Plan of Treatment Date Care Activity Detail Author Start: 05-07-2022 CT Chest W contrast IV [facility] Start: 05-07-2022 CT of thorax with contrast Chest WIT H Contrast [facility] Start: 05-02-2022 Liquid based cervica l cytology screening [facility] CT Chest W contrast IV [facility] Glucose [Mass/volume ] in Serum or Plasma [facility] Lipid 1996 panel - S yanick or Plasma [facility] Magnesium [Mass/volu me] in Serum or Plasma [facility] Path report.final Dx Spec [facility] T4 free measurement [facility] T4 free measurement [facility] Thyroid stimulating hormone measurement [facility] Thyroid stimulating hormone measurement [facility] Thyroperoxidase Ab [Units/volume] in Serum or Plasma [facility] Thyroxine measurement [facility] [place] Thyroid gland [facility] Vitamin D, 25-hydrox y measurement [facility] Immunizations Immunization Date Immunization Notes Care Provider Fa raleighty 03-25-2022 tetanus toxoid, redu alcides diphtheria toxoid, and acellular pertussis vaccine, adsorbed NATY Lyons NP [facility] Payers Date Payer Category Payer Self-pay [id number] 2024 Unknown [id number] Private Health Insurance [facility] [id number] Unknown [id number] Unknown [id number] Unknown [id number] Unknown [id number] Unknown [id number] Unknown [id number] Unknown [id number] Unknown [id number] Unknown [id number] Unknown [id number] Social History Date Type Detail Facility Start: 04-18-2022 End: 05-21-2023 Tobacco smoking status MNIS Unknown if ever smoked [facility] Start: 1975 Sex Assigned At Female W [facility] Start: 05-21-2023 Tobacco smoking stat us MNIS Ex-smoker (finding) [facility] Start: 05-27-2024 End: 05-27-2024 Sex Female (finding) [facility] Radiology Diagnostic study note 07-23-2024 Note Date & Type Note Facility 07-23-2024 Radiology Diagnostic study note [facility] [address], [place] [address] Pelvic w/ Transvaginal MR#: [id number] Acct: [id number] Name: SHAMIKA THOMAS Rep #: [id number] : 1975 F 49 From: Pierre Staley MD PCP: Dr. Freya Lilly MD Status: REG CLI Study:Pelvic w/ Transvaginal Date of Exam: 07/21/24 Exam# [id number] Ordering Dr: Dilma Hawkins STEAM CLEAN MACHINE OPERATOR STEAM CLEAN MACHINE OPERATOR-C PROCEDURE: PELVIC W/ TRANSVAGINAL REASON FOR EXAM: OVARIAN CYSTS Follow-up. TECHNIQUE: Transabdominal and transvaginal pelvic ultrasound COMPARISON: Prior study June 03 FINDINGS: Measurements: Uterus: 10.6 cm x 6 cm x 4.9 cm with a volume of 164.6 mL Endometrial Thickness: 6 mm. It is hyperechoic. Right Ovary: 5.7 cm x 3.1 cm x 2.4 cm with a volume of 0.31 mL. Left Ovary: 2.6 cm x 1.7 cm x 1.3 cm with a volume of 2.55 mL. TRANSABDOMINAL: Uterus: Stable heterogeneous appearance of the posterior fundal portion of the uterus suggestive of possible fibroid. This measures 3.3 cm x 3.9 cm x 2.4 cm. This is unchanged. Endometrium: 6 mm Right ovary: Once again, there are 2 complex cysts in the right ovary. The larger measures 2.9 cm 2.4 cm 2 cm. Internal echoes as well as septations are seen. Left ovary: Normal size and echotexture. Other: No large pelvic mass identified. Transvaginal sonography was performed to better visualize the endometrium. TRANSVAGINAL: Uterus: Retroverted. Heterogeneous appearance of the posterior aspect of the fundal portion of the uterus. Endometrium: Normal echotexture. Right ovary: Stable complex cysts in the right ovary. Left ovary: Normal size and echotexture. Other adnexal findings: None. Cul-de-sac: No free intraperitoneal fluid identified. Tenderness: No tenderness US/Pelvic w/ Transvaginal IMPRESSION: Heterogeneous appearance of the fundal portion of the uterus as described. Stable complex cysts in the right ovary. Reading Location: [id number] CC: NATY Hawkins; Dr. 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: Signed [facility] Evaluation note 05-25-2024 Note Date & Type Note Facility 05-25-2024 Evaluation note Diagnosis Onset Date Resolution Postmenopausal bleeding acute A pril 2024 2:30pm Encounter for routine gynecological examination noneactive May 25, 2024 2:30pm [facility] Work Phone: Evaluation note 05-25-2024 Note Date & Type Note Facility 05-25-2024 Evaluation note Diagnosis Onset Date Resolution Postmenopausal bleeding acute A pril 2024 2:30pm Encounter for routine gynecological examination noneactive May 25, 2024 2:30pm Fatigue acute May 31 2:58pm Postmenopausal bleeding acute A 2024 2:58pm [facility] Work Phone: Clinical Note 05-02-2022 Note Date & Type Note Facility 05-02-2022 Note [facility] Pap Smear Specimen Adequacy May 02, 2022 5:09pm Comment . Satisfactory for evaluation. Endocervical and/or squamous metaplasticcells (endocervical component) are present. Comment on above: Satisfactory for alivia luation. Endocervical and/or squamous metaplasticcells (endocervical component) are present. Chief complaint+Reason for visit Narrative Note Date & Type Note Facility Chief complaint+Reason for visit Narrative Reason for Visit Immunization decline d Screening for colon cancer Screening for cardiovascular condition Establishing care with new doctor, encounter for Low hemoglobin Supraclavicular adenopathy [facility] Work Phone: Evaluation note Note Date & Type Note Facility Evaluation note Diagnosis Onset Date Immunization declined noneac tive Screening for colon cancer n oneactive Screening for cardiovascular condition noneactive Establishing care with new d octor, encounter for noneactive Low hemoglobin noneactive Supraclavicular adenopathy n oneactive [facility] Work Phone: Evaluation note Note Date & Type Note Facility Evaluation note Diagnosis Onset Date Immunization declined noneac tive Screening for colon cancer n oneactive Screening for cardiovascular condition noneactive Establishing care with new d octor, encounter for noneactive Low hemoglobin noneactive Supraclavicular adenopathy n oneactive ASCUS of cervix with negative high risk HPV acute Encounter for routine gyneco logical examination noneactive [facility] Work Phone: Evaluation note Note Date & Type Note Facility Evaluation note Diagnosis Onset Date Concern about appearance of breast resolved Fatigue acute Hypercholesteremia acute Encounter for routine gyneco logical examination noneactive [facility] Work Phone: Evaluation note Note Date & Type Note Facility Evaluation note Diagnosis Onset Date Resolution Thyromegaly acute October 2:24pm [facility] Work Phone: Reason for referral (narrative) Note Date & Type Note Facility Reason for referral (narrative) No reason for referral information available [facility] Work Phone: Family History No Family History Records Found Relationship Condition Age at Onset Recorded Date/T ananda Not Specified Malignant neoplasm of breast Unknown mother Hypertension Unknown father Hyperlipidemia Unknown Hypertension Unknown grandmother Malignant neoplasm of breast Unknown Relationship Condition Age at Onset Recorded Date/T ananda unrelated friend Malignant neoplasm of breast Unknown mother Hypertension Unknown father Hyperlipidemia Unknown Hypertension Unknown grandmother Malignant neoplasm of breast Unknown Advance Directives No Advanced Directives Records Found Advance Directive Response Recorded Date/ Time Living Will No February 22 11:17am Power of Bridge Builder No February 22, 2021 11:17am Advance Directive Response Recorded Date/ Time Living Will No February 04 023 10:00am Power of Bridge Builder No February 04, 2023 10:00am Chief Complaint and Reason for Visit Chief Complaint STEAM CLEAN MACHINE OPERATOR EST CARE screening mammogram Annual (SPINNING BATH PERSON) LOCALIZED ENLARGED LYMPH NODE Reason for Visit Immunization decline d Screening for colon cancer Screening for cardiovascular condition Establishing care with new doctor, encounter for Low hemoglobin Supraclavicular adenopathy ASCUS of cervix with negative high risk HPV Encounter for routine gynecological examination Chief Complaint left breast pain and thickness Annual (SPINNING BATH PERSON) SCREENING Reason for Visit Concern about appear ance of breast Fatigue Hypercholesteremia Encounter for routine gynecological examination Chief Complaint left breast pain and thickness Annual (SPINNING BATH PERSON) SCREENING EORDER Reason for Visit Concern about appear ance of breast Fatigue Hypercholesteremia Encounter for routine gynecological examination Chief Complaint Admit Date Annual (SPINNING BATH PERSON) May 25, 2024 2:3 0pm screen for breast cancer May 25 3:19pm Reason for Visit Admit Date Postmenopausal bleeding May 25, 2024 2:30pm Encounter for routine gynecological exam ination May 25, 2024 2:30pm Chief Complaint Admit Date Annual (SPINNING BATH PERSON) May 25, 2024 2:3 0pm screen for breast cancer May 25 3:19pm EMB (PER BM) May 31, 2024 2:5 8pm PMB June 03, 2024 4:1 7pm OVARIAN CYSTS July 21, 2024 2:14 pm Reason for Visit Admit Date Postmenopausal bleeding May 25, 2024 2:30pm Encounter for routine gynecological exam ination May 25, 2024 2:30pm Fatigue May 31, 2024 2:5 8pm Postmenopausal bleeding May 31, 2024 2:58pm Chief Complaint Admit Date OVARIAN CYSTS July 21, 2024 2:14 pm ENLARGED THYROID - KEEP 1 HOUR October 22, 2024 2:24pm Reason for Visit Admit Date Thyromegaly October 22, 2024 2:24pm Summary Purpose Additional Source Comments Care Teams (unrecognized sec tion and content) Team Status: Active Member Role Status No Primary Care Physician Family Provider Active Dr. Freya Lilly MD Primary Care Provider Active Team Status: Inactive Member Role Status Dates Mimi Lyons STEAM CLEAN MACHINE OPERATOR, STEAM CLEAN MACHINE OPERATOR-C Primary Care Provider, Referr ing Provider Active Dr. Freya Lilly MD Attending Provider Active Team Status: Inactive Member Role Status Dates Dr. Freya Lilly MD Primary Care Pro vider, Attending Provider, Referring Provider Active Team Status: Inactive Member Role Status Dates Mimi Lyons STEAM CLEAN MACHINE OPERATOR, STEAM CLEAN MACHINE OPERATOR-C Referring Provider Active Dilma Hawkins STEAM CLEAN MACHINE OPERATOR, STEAM CLEAN MACHINE OPERATOR-C Attending Provider Active Dr. Freya Lilly MD Primary Care Provider Active Team Status: Inactive Member Role Status Dates Dilma Hawkins STEAM CLEAN MACHINE OPERATOR, STEAM CLEAN MACHINE OPERATOR-C Attending Provider, Referring Provider Active Dr. Freya Lilly MD Primary Care Provider Active Team Status: Active Member Role Status Dates Dr. Freya Lilly MD Primary Care Provider, Attendi ng Provider Active Team Status: Inactive Member Role Status Dates Dr. Freya Lilly MD Primary Care Provider, Attendi ng Provider Active Team Status: Inactive Member Role Status Dates Dr. Freya Lilly MD Primary Care Provider, Referri ng Provider Active Morelia Danielle CNM Attending Provider Active Team Status: Inactive Member Role Status Dates Dr. Freya Lilly MD Primary Care Provider, Referri ng Provider Active Dilma Hawkins STEAM CLEAN MACHINE OPERATOR, STEAM CLEAN MACHINE OPERATOR-C Attending Provider Active Team Status: Inactive Member Role Status Dates Dr. Freya Lilly MD Primary Care Provider Active Dr. Cee Heck MD Attending Provider, Referr ing Provider Active Team Status: Inactive Member Role Status Dates Dr. Freya Lilly MD Primary Care Provider Active Dilma Hawkins STEAM CLEAN MACHINE OPERATOR, STEAM CLEAN MACHINE OPERATOR-C Attending Provider, Referring Provider Active Team Status: Active Member Role Status Dates Dr. Freya Lilly MD Primary Care Provider Active Team Status: Inactive Member Role Status Dates Dr. Freya Lilly MD Primary Care Provider Active Start: May 25, 2024 End: May 25, 2024 Dr. Freya Lilly MD Referring Provider Active Start: May 25, 2024 End: May 25, 2024 Dilma Hawkins STEAM CLEAN MACHINE OPERATOR, STEAM CLEAN MACHINE OPERATOR-C Attending Provider Active Start: May 25, 2024 End: May 25, 2024 Team Status: Inactive Member Role Status Dates Dr. Freya Lilly MD Primary Care Provider Active Start: May 25, 2024 End: May 25, 2024 Dilma Hawkins STEAM CLEAN MACHINE OPERATOR, STEAM CLEAN MACHINE OPERATOR-C Attending Provider Active Start: May 25, 2024 End: May 25, 2024 Dilma Hawkins STEAM CLEAN MACHINE OPERATOR, STEAM CLEAN MACHINE OPERATOR-C Referring Provider Active Start: May 25, 2024 End: May 25, 2024 Team Status: Active Member Role Status Dates Dr. Freya Lilly MD Primary Care Provider Active Start: May 25, 2024 Dilma Hawkins STEAM CLEAN MACHINE OPERATOR, STEAM CLEAN MACHINE OPERATOR-C Attending Provider Active Start: May 25, 2024 Dilma Hawkins STEAM CLEAN MACHINE OPERATOR, STEAM CLEAN MACHINE OPERATOR-C Referring Provider Active Start: May 25, 2024 Team Status: Inactive Member Role Status Dates Dr. Freya Lilly MD Primary Care Provider Active Start: May 31, 2024 End: May 31, 2024 Dr. Freya Lilly MD Referring Provider Active Start: May 31, 2024 End: May 31, 2024 Dilma Hawkins STEAM CLEAN MACHINE OPERATOR, STEAM CLEAN MACHINE OPERATOR-C Attending Provider Active Start: May 31, 2024 End: May 31, 2024 Team Status: Inactive Member Role Status Dates Dr. Freya Lilly MD Primary Care Provider Active Start: May 31, 2024 End: May 31, 2024 Dilma Hawkins STEAM CLEAN MACHINE OPERATOR, STEAM CLEAN MACHINE OPERATOR-C Attending Provider Active Start: May 31, 2024 End: May 31, 2024 Dilma Hawkins STEAM CLEAN MACHINE OPERATOR, STEAM CLEAN MACHINE OPERATOR-C Referring Provider Active Start: May 31, 2024 End: May 31, 2024 Team Status: Inactive Member Role Status Dates Dr. Freya Lilly MD Primary Care Provider Active Start: June 03, 2024 End: June 03, 2024 Dilma Hawkins STEAM CLEAN MACHINE OPERATOR, STEAM CLEAN MACHINE OPERATOR-C Attending Provider Active Start: June 03, 2024 End: June 03, 2024 Dilma Hawkins STEAM CLEAN MACHINE OPERATOR, STEAM CLEAN MACHINE OPERATOR-C Referring Provider Active Start: June 03, 2024 End: June 03, 2024 Team Status: Inactive Member Role Status Dates Dr. Freya Lilly MD Primary Care Provider Active Start: July 21, 2024 End: July 21, 2024 Dilma Hawkins STEAM CLEAN MACHINE OPERATOR, STEAM CLEAN MACHINE OPERATOR-C Attending Provider Active Start: July 21, 2024 End: July 21, 2024 Dilma Hawkins STEAM CLEAN MACHINE OPERATOR, STEAM CLEAN MACHINE OPERATOR-C Referring Provider Active Start: July 21, 2024 End: July 21, 2024 Team Status: Active Member Role/Relationship Status Dates Dr. Freya Lilly MD Primary Care Provider Active Team Status: Inactive Member Role/Relationship Status Dates Dr. Freya Lilly MD Primary Care Provider Active Start: July 21, 2024 End: July 21, 2024 Dilma Hawkins STEAM CLEAN MACHINE OPERATOR, STEAM CLEAN MACHINE OPERATOR-C Attending Provider Active Start: July 21, 2024 End: July 21, 2024 Dilma Hawkins STEAM CLEAN MACHINE OPERATOR, STEAM CLEAN MACHINE OPERATOR-C Referring Provider Active Start: July 21, 2024 End: July 21, 2024 Team Status: Inactive Member Role/Relationship Status Dates Dr. Freya Lilly MD Primary Care Provider Active Start: October 22, 2024 End: October 22, 2024 Dr. Freya Lilly MD Referring Provider Active Start: October 22, 2024 End: October 22, 2024 aCleb RUIZ PA Attending Provider Active St art: October 22, 2024 End: October 22, 2024 Goals (unrecognized section and content) Goals may be documented in a n alternate sectionGoals may be documented in an alternate sectionGoals may be documented in an alternate sectionGoals may be documented in an alternate sectionGoals may be documented in an alternate sectionGoals may be documented in an alternate sectionGoals may be documented in an alternate sectionGoals may be documented in an alternate sectionGoals may be documented in an alternate section INFORMATION SOURCE (unrecogn ized section and content) DATE CREATED AUTHOR 10/28/2024 [facility] FOR RECORDS PERTAINING TO PATIENTS WHO ARE OR HAVE BEEN ENROLLED IN A CHEMICAL DEPENDENCY/SUBSTANCEABUSE PROGRAM, SOME INFORMATION MAY BE OMITTED. This clinical summary was aggregated from multiple sources. Caution should be exercised in using it in the provision of clinical care. This summary normalizes information from multiple sources, and as a consequence, information in this document may materially change the coding, format and clinical context of patient data. In addition, data may be omitted in some cases. CLINICAL DECISIONS SHOULD BE BASED ON THE PRIMARY CLINICAL RECORDS. [facility] [employer] [facility]. provides no warranty or guarantee of the accuracy or completeness of information in this document.
== END | disposition home or self-care (01) ==
LOC: US 11:06
PROVIDERS: PCP Internal Medicine; Referring Provider Physician Assistant; Visit Provider Physician Assistant
DX: E04.9 Nontoxic goiter, unspecified (principal)
CPT/HCPCS: 76536

== ENCOUNTER → 2024-12-03 | Outpatient (CLI) | payer BC, SELFPAY ==
--- OUTSIDE RECORDS SUMMARY | 2024-12-03 15:59 | XMS RPT_ITS | CCD ---
Author Organization [facility] Care Team Providers Care Clothing Man Name Role Phone Eloy RADIOLOGIST DIAGNOSTIC, RADIOLOGIST DIAGNOSTIC-C Mimi Primary Care Provider U chas Eloy RADIOLOGIST DIAGNOSTIC, RADIOLOGIST DIAGNOSTIC-C Mimi Referring Provider Unav ailable Dr. Freya Lilly Attending Provider [phone] Shruthi RADIOLOGIST DIAGNOSTIC, RADIOLOGIST DIAGNOSTIC-C Dilma Attending Provider [phone] Dr. Freya Lilly Primary Care Provider Dr. Freya Lilly Primary Care Provider Dr. Freya Lilly Referring Provider [phone] RODRIGO Danielle Attending Provider Shruthi RADIOLOGIST DIAGNOSTIC, RADIOLOGIST DIAGNOSTIC-C Dilma Attending Provider Dr. Freya Lilly MD Primary Care Provider [phone] Dr. Freya Lilly MD Referring Provider Shruthi RADIOLOGIST DIAGNOSTIC-CDilma Attending Provider Shruthi RADIOLOGIST DIAGNOSTIC-CDilma Referring Provider Dr. Freya Lilly MD Primary Care Provider [phone] Shruthi RADIOLOGIST DIAGNOSTIC-C, Dilma Attending Provider Shruthi RADIOLOGIST DIAGNOSTIC-CDilma Referring Provider Dr. Freya Lilly MD Referring Provider Caleb Hernandez Attending Provider Dr. Freya Lilly MD Primary Care Physician [phone] Shruthi RADIOLOGIST DIAGNOSTIC-CDilma Attending Physician [phone] Caleb Hernandez Attending Physician Caleb Hernandez Referring Provider [phone] Spring, Freya Primary Care Unavailable Weston RADIOLOGIST DIAGNOSTIC, Dilma Referring Unavailable Weston RADIOLOGIST DIAGNOSTIC, Dilma Attending Unavailable Vijaya, Freya Primary Care Unavailable Weston RADIOLOGIST DIAGNOSTIC, Dilma Referring Unavailable Weston RADIOLOGIST DIAGNOSTIC, Dilma Attending Unavailable Vijaya, Freya Primary Care Unavailable Kusum RUIZ, Caleb Attending Unavailable Kusum RUIZ, Caleb Referring Unavailable Spring, Freya Primary Care Unavailable Shruthi RADIOLOGIST DIAGNOSTIC, Dilma Referring Unavailable Weston RADIOLOGIST DIAGNOSTIC, Dilma Attending Unavailable Spring, Freya Referring Unavailable Weston RADIOLOGIST DIAGNOSTIC, Dilma Attending Unavailable Spring, Freya Primary Care Unavailable Shruthi RADIOLOGIST DIAGNOSTIC, Dilma Attending Unavailable Vijaya, Freya Primary Care Unavailable Spring, Freya Referring Unavailable Shruthi RADIOLOGIST DIAGNOSTIC, Dilma Attending Unavailable Weston RADIOLOGIST DIAGNOSTIC, Dilma Referring Unavailable Vijaya, Freya Primary Care Unavailable Weston RADIOLOGIST DIAGNOSTIC, Dilma Attending Unavailable Shruthi RADIOLOGIST DIAGNOSTIC, Dilma Referring Unavailable Vijaya, Freya Primary Care Unavailable Spring, Freya Primary Care Unavailable Kusum RUIZ, Caleb Attending Unavailable Vijaya, Freya Referring Unavailable Allergies Allergy Classification Reported Allergen(s) Allergy Type Date of Onset Reaction(s) Facility (10 sources) Codeine Drug Allergy 3 Other, Vomiting [facility] (1 source) Codeine Drug Allergy 5 [facility] Repository Medications Current Medications Medication Drug Class(es) Dates Sig (Normalized) Sig (Original) cetirizine hydrochloride 10 mg oral tablet (10 sources) Histamine-1 Receptor Antagonist Start: 06-30-2020 take 1 tablet by mouth once daily as needed fluticasone propionate 0.05 mg/actuat metered dose nasal spray (3 sources) Corticosteroid Start: 05-31-2024 take 50 ug nasal route once daily ibuprofen 800 mg oral tablet (10 sources) Nonsteroidal Anti-inflammatory Drug Start: 08-01-2020 take 1 tablet by mouth every eight hours as needed for pain medroxyPROGESTERone acetate 10 mg oral tablet (6 sources) Progestin Start: 06-14-2024 take 1 tablet by mouth every 30 days Start: 06-03-2024 End: 06-13-2024 take 1 tablet by mouth once daily Medroxyprogesterone 10 mg tablet Discontinued 10 mg PO daily 10 10 0 June 03, 2024 12:00am June 12, 2024 12:00am June 13, 2024 12:09am Multivitamin preparation (5 sources) Start: 04-18-2022 take 1 tablet by mouth once daily Multivitamin Active 1 TABLET PO DAILY April 18, 2022 1:00am Multivitamin tablet (5 sources) Start: 04-18-2022 Start: 04-18-2022 Multivitamin t ablet Active 1 {tbl} PO DAILY April 18, 2022 1:00am Completed/Discontinued Medications Medication Drug Class(es) Dates Sig (Normalized) Sig (Original) ascorbic acid 500 mg oral capsule (10 sources) Vitamin C Start: 03-24-2017 End: 06-30-2020 Ascorbic Acid (Vitamin C) 500 mg capsule Discontinued mg PO 0 March 24, 2017 1:00am June 30, 2020 11:03am Start: 03-24-2017 End: 06-30-2020 Ascorbic Acid (Vitamin C) Di scontinued MG PO March 24, 2017 1:00am June 30, 2020 11:03am azithromycin 250 mg oral tablet (10 sources) Macrolide Antimicrobial Start: 02-22-2021 End: 04-18-2022 Azithromycin 250 mg tablet Discontinued 250 mg PO As Directed 6 0 February 22, 2021 1:00am April 18, 2022 3:17pm Infection 2 tabs day one, then 1 tab daily for 4 days until finished. cholecalciferol 0.025 mg oral capsule (10 sources) Vitamin D Start: 06-30-2018 End: 06-30-2020 take 1 capsule by mouth once daily Cholecalciferol (Vitamin D3) 1,000 unit capsule Discontinued 1000 U PO DAILY June 30, 2018 12:00am June 30, 2020 11:03am Magnesium (10 sources) Start: 06-30-2018 End: 06-30-2020 take 1 tablet by mouth once daily Magnesium 250 mg tablet Discontinued 250 mg PO DAILY June 30, 2018 12:00am June 30, 2020 11:03am Start: 06-30-2018 End: 06-30-2020 take 250 mg by mouth once daily Magnesium Discontinued 250 MG PO DAILY June 30, 2018 12:00am June 30, 2020 11:03am Multivitamin,Cv-Yxqh-Suwnzbk s (Complete Multivitamin) tablet (5 sources) Start: 03-24-2017 End: 06-30-2020 Multivitamin,Ay-Deiv-Tbvhblu s (Complete Multivitamin) tablet Discontinued 1 {tbl} PO daily March 24, 2017 1:00am June 30, 2020 11:03am multivitamin,aw-xydn-ajeodvd s tablet (5 sources) Start: 03-24-2017 End: 06-30-2020 take 1 tablet by mouth once daily multivitamin,lj-ckpe-qqcinjvk tablet Discontinued 1 TABLET PO daily March 24, 2017 1:00am June 30, 2020 11:03am Problems Active Problems Problem Classification Problem Date Documented Date Episodic/Chronic Administrative/social admission (3 sources) Persons encountering health services in other specified circumstances; Translations: [Other reasons for seeking consultation] 04-18-2022 Episodic Attention-deficit, conduct, and disruptive behavior disorders (7 sources) Concern about breast appearance; Translations: [Other symptoms and signs involving appearance and behavior] 05-21-2023 Episodic Comment on above: normal breast exam. offered ultrasound for reassurance. pt declines. mammogram in 04/2022 normal. Attention-deficit, conduct, and disruptive behavior disorders (2 sources) Other symptoms and signs involving appearance and behavior; Translations: [Other general symptoms] 02-04-2023 Episodic Cancer of cervix (12 sources) Atypical squamous cells of undetermined significance on cervical Papanicolaou smear; Translations: [Atypical squamous cells of undetermined significance on cytologic smear of cervix (ASC-US)] 09-16-2019 Episodic Comment on above: 2020:rpt was 2022 an d neg pap/HPV Deficiency and other anemia (3 sources) Anemia, unspecified; Translations: [Anemia, unspecified] 04-18-2022 Episodic Disorders of lipid metabolism (9 sources) Hypercholesterolemia; Translations: [Pure hypercholesterolemia, unspecified] 05-21-2023 Chronic Lymphadenitis (3 sources) Localized enlarged lymph nodes; Translations: [Enlargement of lymph nodes] 04-18-2022 Episodic Menopausal disorders (11 sources) Postmenopausal bleeding; Translations: [Postmenopausal bleeding] Onset: 05-27-2024 05-25-2024 Chronic Comment on above: US, EMB Nonmalignant breast conditions (10 sources) Breast lump; Translations: [Unspecified lump in unspecified breast] 04-18-2022 Episodic Other connective tissue disease (3 sources) Medial epicondylitis; Translations: [Medial epicondylitis, right elbow] 04-18-2022 Episodic Other connective tissue disease (7 sources) Medial epicondylitis of right humerus; Translations: [Medial epicondylitis, right elbow] 04-18-2022 Episodic Comment on above: She has no pain with extension of the right elbow and testing is negative for tendonitis. This is a [facility] case. No restrictions as form [employer] and she may return to work with [...] and addressed. This note was generated with Donde dictation software. It may contain incorrect words, spelling, and punctuation that were not noted in checking the note before signing. Other female genital disorders (10 sources) Abnormal uterine bleeding; Translations: [Abnormal uterine and vaginal bleeding, unspecified] 08-02-2020 Chronic Comment on above: US and TSH ordered. Interested in ablation Other upper respiratory infections (10 sources) Sinusitis; Translations: [Chronic sinusitis, unspecified] 04-18-2022 Chronic Other upper respiratory infections (10 sources) Pharyngitis; Translations: [Acute pharyngitis, unspecified] 04-18-2022 Episodic Residual codes; unclassified (10 sources) History of endometrial ablation; Translations: [Other specified postprocedural states] 08-02-2020 Episodic Residual codes; unclassified (3 sources) Immunization not carried out because of patient refusal; Translations: [Vaccination not carried out because of patient refusal] 04-18-2022 Episodic Thyroid disorders (8 sources) Goiter; Translations: [Iodine-deficiency related diffuse (endemic) goiter] Onset: 10-22-2024 10-22-2024 Chronic Past or Other Problems Problem Classification Problem Date Documented Da te Episodic/Chronic Malaise and fatigue (11 sources) Fatigue; Translations: [Other fatigue] Onset: 05-31-2024 05-21-2023 Episodic Other screening for suspected conditions (not mental disorders or infectious disease) (7 sources) Encounter for screening for malignant neoplasm of colon; Translations: [Special screening for malignant neoplasms of colon] Onset: 05-27-2024 04-18-2022 Episodic Ovarian cyst (4 sources) Cyst of ovary; Translations: [Unspecified ovarian cyst, unspecified side] Onset: 07-23-2024 06-07-2024 Episodic Comment on above: rpt US 6 wks Results Test Name Value Interpretation Reference Range Facility Thyroidon 10-30-[address] [facility] Imaging Services [address] [place] [address] Thyroid MR#: [id number] Acct: [id number] Name: SHAMIKA THOMAS Rep #: [id number] : 1975 F 49 From: Arnulfo logan MD PCP: Dr. Freya Lilly MD Status: REG CLI Study: Thyroid Date of Exam: 10/30/24 Exam# [id number] Ordering Dr: Caleb Noe PROCEDURE: THYROID 10/30/2024 REASON FOR EXAM: THYROID ENLARGEMENT TECHNIQUE: Procedure Code: USTHY Modality: US Procedure: THYROID COMPARISON: None FINDINGS: Right thyroid lobe size: 5.9 cm 1.5 cm 1.3 cm Left thyroid lobe size: 5.5 cm 1.6 cm 1.2 cm Isthmus: 0.2 cm Background parenchymal echotexture is homogeneous. Nodules: Scattered subcentimeter colloid cysts in the right lobe. . Lobe: Left, Location: Lateral and inferior, Size: 0.7 cm 0.4 cm x 0.4 cm, Stability: N/A Composition: Mixed cystic and solid (+1) Echogenicity: Hypoechoic (+2) Margin: Smooth (+0) Shape: Wider than tall (+0) Echogenic Foci: None (+0) TI-RADS: 3 Similar-appearing nodule is seen in the midpole measuring 6 mm x 5 mm x 2 mm. Tie rads category 3. US/Thyroid IMPRESSION: Mild enlargement of the thyroid gland. There are 2 subcentimeter complex nodules in the left lobe of the thyroid as described. TI-RADS category 3. Sonographic follow-up recommended. RECOMMENDATION: Based on most suspicious nodule. Nodule size = largest diameter Only evaluate nodule if =>5 mm. Growth > 20% in 2 dimensions = worsening. Follow up to 4 nodules. Recommend biopsy for no more than 2 nodules. Reading Location: [place] [address] CC: Dr. Freya Lilly MD; JOSEPH Melchor J2Ee Developer: Signed Normal [facility] Internal Medicine Office Vis iton 10-22-2024 Internal Medicine Office Visit [facility] [address] [place], [place] [address] OFFICE VISIT Date of Service: 10/22/24 MR#: [id number] Acct: [id number] Name: SHAMIKA THOMAS Rep #: [id number] : 1975 Provider: JOSEPH Melchor Age/Sex: 49/F Location: [facility] Status: Signed Intake Vital Signs 05/31/24 15:09 [...] Reasons: ENLARGED THYROID - KEEP 1 HOUR Associate Professor Of Theology Required: No Accompanied by: Self Is patient [...] children current occupational status: employed current occupation: [employer] [place] Smoking Status: Former smoker quit date: 08/10/21 [...] Yes 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 HPI Details: SHAMIKA THOMAS, is a 49 [...] hearing, dizz (more content not included)... Normal [facility] Pelvic w/ Transvaginalon Pelvic w/ Transvaginal [facility] Imaging Services [address] [place], [place] [address] Pelvic w/ Transvaginal MR#: [id number] Acct: [id number] Name: SHAMIKA THOMAS Rep #: [id number] : 1975 F 49 From: Arnulfo logan MD PCP: Dr. Freya Lilly MD Status: REG CLI Study: Pelvic w/ Transvaginal Date of Exam: 07/21/24 Exam# [id number] Ordering Dr: Dilma Hawkins RADIOLOGIST DIAGNOSTIC RADIOLOGIST DIAGNOSTIC -C PROCEDURE: PELVIC W/ TRANSVAGINAL REASON FOR [...] cysts in the right ovary. Reading Location: [id number] CC: NATY Hawkins; Dr. Freya Lilly MD J2Ee Developer: Signed Normal [facility] Pelvic w/ Transvaginalon Pelvic w/ Transvaginal [facility] Imaging Services [address] [place] [address] Pelvic w/ Transvaginal MR#: [id number] Acct: [id number] Name: SHAMIKA THOMAS Rep #: [id number] : 1975 F 49 From: Marek Cheek i, MD PCP: Dr. Freya Llily MD Status: REG CLI Study: Pelvic w/ Transvaginal Date of Exam: 06/03/24 Exam# [id number] Ordering Dr: Dilma Hawkins NP, NP -Sophie ADDENDUM by Dr. Marek Glez MD on 06/04/24 at 0447 Endometrial stripe measures up to 4.3 mm. Reading Location: [id number] 06/04/24 0448 Date cc: NATY Hawkins; Dr. [...] nabothian cysts within the cervix. Reading Location: [id number] CC: NATY Hawkins; Dr. Freya Lilly MD J2Ee Developer: Signed Normal [facility] Thyroid Peroxidase ABon 05-12 THYR PEROX AB 10 IU/mL Normal 0-34 [facility] Comment on above: Result Comment: Perf ormed at: CB - [facility] [address] [id number] Asphalt Paving Superintendent: Antoine Hennessy PhD, Phone: [phone] Performed By: #### L 3300.0418, E860.7161, B494.8693, L506.3566 ####[facility] [id number] [place], [address] Personal Care Assistant Office Visit Reporton 05-31-2024 Personal Care Assistant Office Visit Report [facility] [address], [address] [place] [address] OFFICE VISIT Date of Service: 05/31/24 MR#: [id number] Acct: [id number] Name: SHAMIKA THOMAS Rep #: [id number] : 1975 Provider: NATY cabrales Age/Sex: 49/F Location: [facility] [place] [facility] Status: Signed Intake Vital Signs 05/25/24 14:41 05/31/24 15:03 05/31/24 15:09 Height 5 ft 7 in 5 ft 7 in 5 ft 7 in Weight: 194 lb 2 oz BMI 30.4 BP 130/82 H Intake Visit Reasons: EMB (PER BM) Chief Complaint: EMB Associate Professor Of Theology Required: No Is patient in pain?: No [...] children current occupational status: employed current occupation: [employer] Smoking Status: Former smoker quit date: [...] Ralph León Taylor live - full term [place] HPI EMB (PER BM) Details: SHAMIKA THOMAS [...] noted. Coding Level of Care Code Attention Band Master Diagnoses Postmenopausal bleeding N95.0 Fatigue, unspecified type R53.83 Fatigue type: unspecified (more content not included)... Normal [facility] Serum or plasma thyroperoxid ase antibody assay (units/volume)Ordered By: Dilma Hawkins on 05-31-2024 TPO Ab Qn 10 [IU]/mL 0-34 [facility] Comment on above: Performed at: [facility] [employer] [id number] Director: Antoine Hennessy PhD, Phone: [phone] Surgery Specimen Level Mira 05-31-2024 Surgery Specimen Level IV -------- Patient Age/Sex Location Account Attending Physician -------- [facility] 49[facility] [id number] NATY Raphael -------- Specimen: [id number] Received: 05/31/24 Status: ALISIA Ríos Num: [id number] Spec Type: ENDOM BX/C Subm Dr: Dilma Hawkins, JOSE-C HEADER OPERATION: Endometrial biopsy PRE-OP DIAGNOSIS: Post [...] in aggregate. Submitted in toto in A1. [facility] 06/02/2024 CPT:81996 -------- Patient Age/Sex Location Account Attending Physician -------- WILLIAMSHAMIKA 49/F [facility] [id number] NATY Raphael -------- Signed (signature on file) Dr. Yaima Leone MD 06/02/24 1619 -------- Normal [facility] Comment on above: Performed By: #### P SUIV ####[facility] [id number] [facility] [place], [address] T4 Free Directon 05-31-2024 T4 FREE DIRECT 1.20 ng/dL Normal 0.76-1.46 [facility] Comment on above: Performed By: #### L 3300.6900, L501.9520, L506.1001, L506.0400 #### [facility] Laboratory [address] [facility] [facility] [place], [place], [address] T4 freeOrdered By: Dilma aleman on 05-31-2024 Free T4 [Mass/Vol] 1.20 ng/dL 0.76-1.46 [facility] TSH DL <= 0.005 mIU/L QnOrde red By: Dilma Hawkins on 05-31-2024 TSH Qn 2.950 uIU/mL 0.300-4.200 [facility] Thyroid Stim Hormone (TSH)on 05-31-2024 TSH 2.950 uIU/mL Normal 0.300-4.200 [facility] Comment on above: Performed By: #### L 3300.6900, L501.9520, L506.1001, L506.0400 #### [facility] Laboratory [address] [place], [address] Vitamin D,25 Hydroxyon 05-31 Vitamin D 25-OH 33.9 ng/mL Normal 30-100 [facility] Comment on above: Result Comment: Seema min D Status Deficiency: <20 ng/mL (50nmol/L) Insufficiency: 20-30 ng/mL (50-75 nmol/L) Sufficiency: 30-100 ng/mL (75-250 nmol/L) Toxicity: >100 ng/mL (>250 nmol/L) Performed By: #### L 3300.6900, L501.9520, L506.1001, L506.0400 #### [facility] Laboratory [address] [place], [place], [id number] Breast imaging reportOrdered By: Arnulfo Staley on 05-26-2024 Study report [facility] Imaging Services [address] [place], [place] [address] SCRN MAMM (CAD)W/ANGELINA BILAT MR#: [id number] Acct: [id number] Name: SHAMIKA THOMAS Rep #: [id number] : 1975 F 49 From: Pierre Staley MD PCP: Dr. Freya Lilly MD Status: REG CLI Study:SCRN MAMM (CAD)W/ANGELINA BILAT Date of Exa m: 05/25/24 Exam# [id number] Ordering Dr: Dilma Hawkins RADIOLOGIST DIAGNOSTIC RADIOLOGIST DIAGNOSTIC-C EXAM: SCRN MAMM (CAD)W/ANGELINA BILAT DATE: 05/25/2024 [...] be mailed to the patient. Reading Location: [place] [address] CC: NATY Hawkins; Dr. Freya Lilly MD ~ J2Ee Developer: Signed [facility] E2 post dose follitropin [Ma ss/Vol]Ordered By: Dilma Hawkins on 05-25-2024 Estradiol (E2) Level 239.0 pg/mL [facility] Comment on above: FEMALES ADULT FEMALE [...] 17. Estradiolon 05-25-2024 ESTRADIOL 239.0 pg/mL Normal [facility] Comment on above: Result Comment: FEMA [...] age 17. Performed By: #### L 3300.1750, L3746.4673 ####[facility] [address] [place], [place], [id number] Follicle Stimulating Hormone on 05-25-2024 FSH 5.4 mIU/mL Normal [facility] Comment on above: Result Comment: FEMA [...] 10.8 mIU/mL Performed By: #### L 3300.1750, L3100.5127 ####[facility] [address] [place], [place], [id number] Follicle stimulating hormone (FSH) levelOrdered By: Dilma Hawkins on 05-25-2024 Follicle Stimulating Hormone 5.4 mIU/mL [facility] Comment on above: FEMALE:Follicular: 1 .4 [...] 132.2 mlU/mL MALE 0.7 - 10.8 mIU/mL Personal Care Assistant Office Visit Reporton 05-25-2024 Personal Care Assistant Office Visit Report [facility] [address], [address] [place] [address] OFFICE VISIT Date of Service: 05/25/24 MR#: [id number] Acct: [id number] Name: SHAMIKA THOMAS Rep #: [id number] : 1975 Provider: NATY cabrales Age/Sex: 49/F Location: [facility] Status: Signed Intake Vital Signs 05/21/23 13:17 05/25/24 14:35 05/25/24 14:41 Height 5 ft 7 in 5 ft 7 in 5 ft 7 in Weight: 197 lb 2 oz BMI 30.9 BP 122/84 H 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: 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 Associate Professor Of Theology Required: No Is patient in pain?: No [...] children current occupational status: employed current occupation: [employer] Smoking Status: Former smoker quit [...] Date Name GA/Weeks Outcome Route Bth Weight Infant Gen Labor Lgth Anesthesia [facility] Provider FOB Unknown 1998 Olivia live - full term Unknown 2004 Ralph León Taylor live - full term [facility] Encounter for routine gynecological examination Details: SHAMIKA [...] of abnormal mammogram: no Colon cancer screening: cologuard 2022 Other preventative health care screenings: Eitan ROS Const Constitutional: Denies fatigue, weight gain or weight [...] oriented to person and oriented to place HENKY Head: normal to inspection Neck Neck: normal [...] exam, uterin (more content not included)... Normal [facility] SCRN MAMM (CAD)W/ANGELINA BILATo n 05-25-2024 SCRN MAMM (CAD)W/ANGELINA BILAT [facility] Imaging Services [address] [place] [address] SCRN MAMM (CAD)W/ANGELINA BILAT MR#: [id number] Acct: [id number] Name: SHAMIKA THOMAS Rep #: [id number] : 1975 F 49 From: Arnulfo logan MD PCP: Dr. Freya Lilly MD Status: REG [facility] Study: SCRN MAMM (CAD)W/ANGELINA BILAT Date of Exam: 05/11 07/04 Exam# [id number] Ordering Dr: Dilma Hawkins RADIOLOGIST DIAGNOSTIC RADIOLOGIST DIAGNOSTIC -C EXAM: SCRN MAMM (CAD)W/ANGELINA BILAT DATE: [...] be mailed to the patient. Reading Location: [place] [address] CC: NATY Hawkins; Dr. Freya Lilly MD J2Ee Developer: Signed Normal [facility] Serum or plasma estradiol me asurement after follitropin dose (mass/volume)Ordered By: Dilma Hawkins on 05-25-2024 E2 post dose follitropin [Mass/Vol] 239.0 pg/mL [facility] Comment on above: FEMALES ADULT FEMALE [...] on 05-29-2023 Cholesterol [Mass/Vol] 247 mg/dL <[address] [facility] Comment on above: <200 mg/dL Desirable 200-240 mg/dL Borderline >240 mg/dL High Risk Glucose [Mass/Vol] 96 mg/dL 74-106 [facility] Triglyceride [Mass/Vol] 61 mg/dL <199 [facility] Comment on above: The drugs N-Acetylcy steine and Metamizole may falsely depress this assay.Serum Triglycerides Reference Interval Normal <150 mg/dL Borderline high 150 - 199 mg/dL High 200 - 499 mg/dL Very High > or = 500 mg/dL Laboratory - Chemistry and C hemistry - challengeOrdered By: Dilma Hawkins on 05-29-2023 Cholesterol in HDL [Mass/Vol] 81 mg/dL >40 [facility] Comment on above: The drugs N-Acetylcy steine and Metamizole may falsely depress this assay. Reference Range HDL <40 mg/dL Low HDL Cholesterol HDL >or= 60 mg/dL High HDL Cholesterol Cholesterol in LDL [Mass/Vol] 154 mg/dL 0-130 [facility] Magnesium [Mass/Vol] 2.0 mg/dL 1.6-2.6 [facility] No Panel InformationOrdered By: Dilma Hawkins on 05-29-2023 Vitamin D 25-Hydroxy 29.9 ng/mL [facility] Comment on above: Vitamin D 25(OH) Sta tus Range Deficiency <20 ng/mL (50nmol/L) Insufficiency 20 - 30 ng/mL (50 - 75 nmol/L) Sufficiency 30 - 100 ng/mL (75 - 250 nmol/L) Toxicity >100 ng/mL (>250 nmol/L) VLDL Cholesterol 12 mg/dL 5-40 [facility] Serum or plasma thyroid stim ulating hormone (TSH) measurement (units/volume)Ordered By: Dilma Hawkins on 05-29-2023 TSH Qn 1.23 uIU/mL 0.358-3.74 [facility] Serum or plasma thyroperoxid ase antibody assay (units/volume)Ordered By: Dilma Hawkins on 05-29-2023 TPO Ab Qn [IU]/mL 0-34 [facility] Comment on above: Performed at: [place] [id number] Director: Antoine Hennessy PhD, Phone: [phone] Thin prep Papanicolaou smear with manual screeningOrdered By: Dilma Hawkins on 05-29-2023 Thin prep Papanicolaou smear with manual screening 0.91 ng/dL 0.76-1.46 [facility] Cervical or vagninal specime n microscopic examination by cytology stain (reported asOrdered By: Dilma Hawkins on 05-02-2022 Cytology report Cyto stain Doc (Cvx/Vag) Comment . [facility] Comment on above: The Pap smear [...] DNA Probe+sig amp Ql (Cvx) Negative Negative [facility] Comment on above: This nucleic acid am plification test detects fourteen high-risk HPV types (16,18,31,33,35,39,45,51,52,56,58,59,66,68)without differentiation. Laboratory - CytologyOrdered By: Dilma Hawkins on 05-02-2022 Insulating Machine Operator Cyto stain Nom (Cvx/Vag) [ID] Comment . [facility] Comment on above: Marcellus Frank totechnologist (ASCP) Laboratory - Miscellaneous t estsOrdered By: Dilma Hawkins on 05-02-2022 Service comment (Unsp spec) [Interp] Comment . [facility] Comment on above: This liquid based Th inPrep(R) pap test was screened withthe use of an image guided system. Service comment (Unsp spec) [Interp] . . [facility] Liquid-based cerv Pap + CT/G C by EUGENIA w reflex to high-risk HPV for ASCUSOrdered By: Dilma Hawkins on 05-02-2022 Cytology report Cyto stain.thin prep Doc (Cvx/Vag) Comment . [facility] Comment on above: Criteria not met, HP V Genotype not performed.Performed at: [place] - [facility] [address] [id number] Director: Louise Wood MD, Phone: [phone] at: =G - [facility] [address] [id number] Director: Louise Wood MD, Phone: [phone] No Panel InformationOrdered By: Dilma Hawkins on 05-02-2022 Pathology report final diagnosis Narrative Comment . [facility] Comment on above: NEGATIVE FOR INTRAEP ITHELIAL LESION OR MALIGNANCY. Absolute lymphocyte countOrd ered By: Dr. Lilly on 04-19-2022 Lymphocytes Auto (Unsp spec) [#/Vol] 0.97 10*3/uL 0.83-4.51 [facility] Basophil percentageOrdered B y: Dr. Lilly on 04-19-2022 Basophils/100 WBC (Bld) 0.3 % 0-1 [facility] Bilirubin [Mass/Vol] 1.00 mg/dL 0.20-1.00 [facility] Comment on above: For patients on eltr ombopag therapy, use of Dimension Excello TBIL is not recommended. Chloride [Moles/Vol] 106 mmol/L 98-107 [facility] Cholesterol [Mass/Vol] 272 mg/dL <200 [facility] Comment on above: <200 mg/dL Desirable 200-240 mg/dL Borderline >240 mg/dL High Risk Eosinophils/100 WBC (Bld) 0.9 % 0-5 [facility] Glucose [Mass/Vol] 97 mg/dL 74-106 [facility] Neutrophils (Bld) [#/Vol] 2.0 10*3/uL 2.0-7.7 [facility] Neutrophils/100 WBC (Bld) 59.4 % 47-70 [facility] Potassium [Moles/Vol] 4.5 mmol/L 3.5-5.1 [facility] Protein [Mass/Vol] 7.2 g/dL 6.4-8.2 [facility] Sodium [Moles/Vol] 140 mmol/L 136-145 [facility] Triglyceride [Mass/Vol] 89 mg/dL <199 [facility] Comment on above: The drugs N-Acetylcy steine and Metamizole may falsely depress this assay.Serum Triglycerides Reference Interval Normal <150 mg/dL Borderline high 150 - 199 mg/dL High 200 - 499 mg/dL Very High > or = 500 mg/dL WBC (Bld) [#/Vol] 3.4 10*3/uL 4.4-11.0 [facility] Blood erythrocytes count (nu mber/volume)Ordered By: Dr. Lilly on 04-19-2022 RBC (Bld) [#/Vol] 4.42 10*6/uL 4.2-5.4 [facility] Blood hemoglobin measurement (mass/volume)Ordered By: Dr. Lilly on 04-19-2022 Hemoglobin (Bld) [Mass/Vol] 14.9 g/dL 12.0-15.0 [facility] Blood lymphocytes/100 leukoc ytesOrdered By: Dr. Lilly on 04-19-2022 Lymphocytes/100 WBC (Bld) 29.0 % 19-41 [facility] Blood monocytes/100 leukocyt esOrdered By: Dr. Lilly on 04-19-2022 Monocytes/100 WBC (Bld) 10.1 % 0-10 [facility] Blood platelet mean volumeOr dered By: Dr. Lilly on 04-19-2022 Platelet mean volume (Bld) [Entitic vol] 9.6 fL 6.2-12.0 [facility] Determination of erythrocyte mean corpuscular volume (MCV)Ordered By: Dr. Lilly on 04-19-2022 MCV (RBC) [Entitic vol] 101.1 fL 81-99 [facility] Hematocrit Auto (Bld) [Volum e fraction]Ordered By: Dr. Lilly on 04-19-2022 Hematocrit (Bld) [Volume fraction] 44.7 % 37-47 [facility] Laboratory - Chemistry and C hemistry - challengeOrdered By: Dr. Lilly on 04-19-2022 ALP [Catalytic activity/Vol] 55 U/L 45-117 [facility] ALT [Catalytic activity/Vol] 20 U/L 13-56 [facility] CO2 [Moles/Vol] 28.0 mmol/L 21.0-32.0 [facility] Globulin (S) [Mass/Vol] 3.1 g/dL 2.2-4.2 [facility] Urea nitrogen/Creatinine [Mass ratio] 22.6 mg/mg 10-20 [facility] Laboratory - Hematology and Cell countsOrdered By: Dr. Lilly on 04-19-2022 Erythrocyte distribution width (RBC) [Entitic vol] 46.9 fL 35.1-43.9 [facility] Erythrocyte distribution width (RBC) [Ratio] 12.5 % 11.6-14.6 [facility] Immature granulocytes/100 WBC (Bld) 0.300 % 0.0-0.9 [facility] Comment on above: IG% - Immature Granu locytes (promyelocytes, myelocytes and metamyelocytes) > 1% indicates that a LEFT SHIFT is Present. MCH (RBC) [Entitic mass] 33.7 pg 27.0-32.0 [facility] Nucleated RBC/100 WBC (Bld) [Ratio] 0 % 0-5 [facility] MCHC Auto (RBC) [Mass/Vol]Or dered By: Dr. Lilly on 04-19-2022 MCHC (RBC) [Mass/Vol] 33.3 g/dL 32-36 [facility] No Panel InformationOrdered By: Dr. Lilly on 04-19-2022 Estimated GFR (MDRD) Amer 106 mL/min >60 [facility] Comment on above: GFR Calc Estimated GFR (MDRD) Non-Af Amer 87 mL/min >60 [facility] Comment on above: Non- GFR Calc Vitamin D 25-Hydroxy 106.8 ng/mL [facility] Comment on above: Vitamin D 25(OH) [...] 04-19-2022 Platelets (Bld) [#/Vol] 229 10*3/uL 150-450 [facility] Serum or plasma albumin hilton urement (mass/volume)Ordered By: Dr. Lilly on 04-19-2022 Albumin [Mass/Vol] 4.1 g/dL 3.2-5.0 [facility] Serum or plasma albumin/glob ulin mass ratioOrdered By: Dr. Lilly on 04-19-2022 Albumin/Globulin [Mass ratio] 1.3 {ratio} 0.9-2.4 [facility] Serum or plasma calcium hilton urement (mass/volume)Ordered By: Dr. Lilly on 04-19-2022 Calcium [Mass/Vol] 9.5 mg/dL 8.5-10.1 [facility] Serum or plasma cholesterol in HDL measurement (mass/volume)Ordered By: Dr. Lilly on 04-19-2022 Cholesterol in HDL [Mass/Vol] 85 mg/dL >40 [facility] Comment on above: The drugs N-Acetylcy steine and Metamizole may falsely depress this assay. Reference Range HDL <40 mg/dL Low HDL Cholesterol HDL >or= 60 mg/dL High HDL Cholesterol Serum or plasma cholesterol in VLDL measurement (mass/volume)Ordered By: Dr. Lilly on 04-19-2022 Cholesterol in VLDL [Mass/Vol] 18 mg/dL 5-40 [facility] Serum or plasma creatinine m easurement (mass/volume)Ordered By: Dr. Lilly on 04-19-2022 Creatinine [Mass/Vol] 0.75 mg/dL 0.55-1.02 [facility] Comment on above: The validity of the calculated GFR & GFRAA in patients over 70 years has not been determined. Clinical correlation is essential. Serum or plasma low density lipoprotein (LDL) cholesterol measurement (mass/volume)Ordered By: Dr. Lilly on 04-19-2022 Cholesterol in LDL [Mass/Vol] 169 mg/dL 0-130 [facility] Serum or plasma urea nitroge n measurement (mass/volume)Ordered By: Dr. Lilly on 04-19-2022 Urea nitrogen [Mass/Vol] 17 mg/dL 7-18 [facility] Thin prep Papanicolaou smear with manual screeningOrdered By: Dr. Lilly on 04-19-2022 Thin prep Papanicolaou smear with manual screening 22 U/L 15-37 [facility] Thin prep Papanicolaou smear with manual screening 6 5-15 [facility] Vital Signs Date Time Vital Sign Value Performing Clinician Amadeoi petty 10-22-2024 14:33-0400 Body height 170.[address] Freya Lilly MD Work Phone: [facility] 10-22-2024 14:33-0400 Body mass index (BMI) [Ratio] 30.5 kg/m2 Dr. Freya Lilly MD Work Phone: [facility] 10-22-2024 14:33-0400 Body temperature 96.2 [degF] Dr. Freya Lilly MD Work Phone: [facility] 10-22-2024 14:33-0400 Body weight 88.[address] Freya Lilly MD Work Phone: [facility] 10-22-2024 14:33-0400 Diastolic blood pressure 74 mm[Hg] Dr. Freya Lilly MD Work Phone: [facility] 10-22-2024 14:33-0400 Heart rate 86 /min Dr. Freya Lilly MD Work Phone: [facility] 10-22-2024 14:33-0400 Respiratory rate 18 /min Dr. Freya Lilly MD Work Phone: [facility] 10-22-2024 14:33-0400 SaO2% (BldA) [Mass fraction] 95 % Dr. Freya Lilly MD Work Phone: [facility] 10-22-2024 14:33-0400 Systolic blood pressure 114 mm[Hg] Dr. Freya Lilly MD Work Phone: [facility] 05-31-2024 15:09-0400 Body height 170.[address] Freya Lilly MD Work Phone: [facility] 05-31-2024 15:03-0400 Body mass index (BMI) [Ratio] 30.4 kg/m2 Dr. Freya Lilly MD Work Phone: [facility] 05-31-2024 15:03-0400 Body weight 88.[address] Freya Lilly MD Work Phone: [facility] 05-31-2024 15:03-0400 Diastolic blood pressure 82 mm[Hg] Dr. Freya Lilly MD Work Phone: [facility] 05-31-2024 15:03-0400 Systolic blood pressure 130 mm[Hg] Dr. Freya Lilly MD Work Phone: [facility] 05-25-2024 14:41-0400 Body height 170.[address] Freya Lilly MD Work Phone: [facility] 05-25-2024 14:35-0400 Body mass index (BMI) [Ratio] 30.9 kg/m2 Dr. Freya Lilly MD Work Phone: [facility] 05-25-2024 14:35-0400 Body weight 89.[address] Freya Lilly MD Work Phone: [facility] 05-25-2024 14:35-0400 Diastolic blood pressure 84 mm[Hg] Dr. Freya Lilly MD Work Phone: [facility] 05-25-2024 14:35-0400 Systolic blood pressure 122 mm[Hg] Dr. Freya Lilly MD Work Phone: [facility] 05-21-2023 13:17-0400 Body height 170.[address] Freya Lilly Work Phone: [facility] 05-21-2023 13:12-0400 Body mass index (BMI) [Ratio] 28.3 kg/m2 Dr. Freya Lilly Work Phone: [facility] 05-21-2023 13:12-0400 Body weight 82.[address] Freya Lilly Work Phone: [facility] 05-21-2023 13:12-0400 Diastolic blood pressure 82 mm[Hg] Dr. Freya Lilly Work Phone: [facility] 05-21-2023 13:12-0400 Systolic blood pressure 124 mm[Hg] Dr. Freya Lilly Work Phone: [facility] 02-04-2023 09:00-0500 Body mass index (BMI) [Ratio] 28.3 kg/m2 Dr. Freya Lilly Work Phone: [facility] 02-04-2023 09:00-0500 Body weight 82.[address] Freya Lilly Work Phone: [facility] 02-04-2023 09:00-0500 Diastolic blood pressure 87 mm[Hg] Dr. Freya Lilly Work Phone: [facility] 02-04-2023 09:00-0500 Systolic blood pressure 132 mm[Hg] Dr. Freya Lilly Work Phone: [facility] 05-02-2022 13:23-0400 Body height 170.18 cm NATY Lyons RADIOLOGIST DIAGNOSTIC [facility] 05-02-2022 13:18-0400 Body mass index (BMI) [Ratio] 27.6 kg/m2 NATY Lyons RADIOLOGIST DIAGNOSTIC [facility] 05-02-2022 13:18-0400 Body weight 79.88 kg RADIOLOGIST DIAGNOSTIC-Sophie Lyons [facility] 05-02-2022 13:18-0400 Diastolic blood pressure 80 mm[Hg] RADIOLOGIST DIAGNOSTIC-Sophie Lyons [facility] 05-02-2022 13:18-0400 Systolic blood pressure 124 mm[Hg] RADIOLOGIST DIAGNOSTIC-Sophie Lyons [facility] 04-18-2022 14:24-0500 Body height 170.18 cm RADIOLOGIST DIAGNOSTIC-Sophie Lyons [facility] 04-18-2022 14:24-0500 Body mass index (BMI) [Ratio] 26.4 kg/m2 RADIOLOGIST DIAGNOSTIC-Sophie Lyons [facility] 04-18-2022 14:24-0500 Body temperature 97.4 [degF] RADIOLOGIST DIAGNOSTIC-Sophie Lyons [facility] 04-18-2022 14:24-0500 Body weight 76.65 kg RADIOLOGIST DIAGNOSTIC-Sophie Lyons [facility] 04-18-2022 14:24-0500 Diastolic blood pressure 80 mm[Hg] -Sophie Lyons [facility] 04-18-2022 14:24-0500 Heart rate 89 /min -Sophie Lyons [facility] 04-18-2022 14:24-0500 Respiratory rate 18 /min -C Mimi Lyons [facility] 04-18-2022 14:24-0500 SaO2% (BldA) [Mass fraction] 98 % -Sophie Lyons [facility] 04-18-2022 14:24-0500 Systolic blood pressure 128 mm[Hg] -C Mimi Lyons [facility] Encounters Encounter Date Encounter Type Care Provider Facility Start: 10-30-2024 End: 10-30-[address] Freya Lilly MD Work Phone: -Ultrasound [facility] Start: 10-30-2024 End: 10-30-2024 Patient encounter procedure Caleb Noe PA -Ultrasound [facility] Work Phone: Start: 10-30-2024 End: 10-30-2024 ambulatory Freya Lilly Facility:[facility] Start: 10-22-2024 End: 10-22-2024 Patient encounter procedure Caleb RUIZ -[facility] Work Phone: Start: 10-22-2024 End: 10-22-[address] Freya Lilly MD Work Phone: -[facility] Start: 07-21-2024 End: 07-21-[address] Freya Lilly MD Work Phone: [facility] Work Phone: Start: 07-21-2024 End: 07-21-2024 Patient encounter procedure Dilma Hawkins RADIOLOGIST DIAGNOSTIC-C -Ultrasound [facility] Work Phone: Start: 07-21-2024 End: 07-21-2024 ambulatory Freya Lilly Facility:[facility] Start: 06-03-2024 End: 06-03-2024 Patient encounter procedure Dilma Hawkins RADIOLOGIST DIAGNOSTIC-C -Ultrasound [facility] Work Phone: Start: 06-03-2024 End: 06-03-2024 ambulatory Freya Lilly Facility:[facility] Start: 05-31-2024 End: 05-31-2024 Patient encounter procedure Dilma Hawkins RADIOLOGIST DIAGNOSTIC-C -[facility] Work Phone: Start: 05-31-2024 End: 05-31-2024 ambulatory Dilma Hawkins RADIOLOGIST DIAGNOSTIC Facility:[facility] Start: 05-31-2024 End: 05-31-2024 ambulatory Freya Lilly Facility:[facility] Start: 05-25-2024 Encounter for gynecological examination (general) (routine) with abnormal findings Dilma Hawkins RADIOLOGIST DIAGNOSTIC [facility] Start: 05-25-2024 End: 05-25-2024 Patient encounter procedure Dilma Hawkins RADIOLOGIST DIAGNOSTIC-C -[facility] Work Phone: Start: 05-25-2024 End: 05-25-2024 Patient encounter status Dilma Hawkins RADIOLOGIST DIAGNOSTIC-C [facility] Start: 05-25-2024 End: 05-25-[address] Freya Lilly MD Work Phone: [facility] Work Phone: Start: 05-25-2024 End: 05-25-2024 ambulatory Dilma Hawkins NP Facility:[facility] Start: 05-29-2023 End: 05-29-[address] Freya Lilly Work Phone: [facility] Work Phone: Start: 05-29-2023 End: 05-29-[address] Freya Lilly Work Phone: [facility] Work Phone: Start: 05-21-2023 End: 05-21-[address] Freya Lilly Work Phone: [facility] Work Phone: Start: 05-21-2023 End: 05-21-[address] Freya Lilly Work Phone: [facility] Work Phone: Start: 02-04-2023 End: 02-04-[address] Freya Lilly Work Phone: [facility] Work Phone: Start: 05-07-2022 End: 05-07-2022 ambulatory RADIOLOGIST DIAGNOSTIC-Sophie Lyons RADIOLOGIST DIAGNOSTIC [facility] Work Phone: Start: 05-07-2022 End: 05-07-2022 Patient encounter procedure JOSE-Sophie Lyons RADIOLOGIST DIAGNOSTIC [facility] Start: 05-02-2022 End: 05-02-2022 ambulatory JOSE-Sophie Lyons RADIOLOGIST DIAGNOSTIC [facility] Work Phone: Start: 05-02-2022 End: 05-02-2022 Patient encounter procedure JOSE-Sophie Lyons NP [facility] Start: 04-19-2022 End: 04-19-2022 ambulatory RADIOLOGIST DIAGNOSTIC-Sophie Lyons [facility] Work Phone: Start: 04-19-2022 End: 04-19-2022 Patient encounter procedure RADIOLOGIST DIAGNOSTIC-Sophie Lyons NP [facility]-Laboratory, [facility] Start: 04-18-2022 End: 04-18-2022 Patient encounter procedure NATY Lyons NP [facility] Procedures Date Procedure Procedure Detail Performing Clinician Start: 10-30-2024 US scan of thyroid Dr. Freya Lilly MD Work Phone: Start: 07-21-[address] Contreras Lilly [...] CT of thorax with contrast NATY Lyons RADIOLOGIST DIAGNOSTIC Start: 05-02-2022 Screening mammography N PGary Lyons RADIOLOGIST DIAGNOSTIC H/O: surgery H/O cervical polypectomy NATY Lyons NP Plan of Treatment Date Care Activity Detail Author Start: 10-22-2024 T4 free measurement [facility] Start: 10-22-2024 Thyroid stimulating hormone measurement [facility] Start: 10-22-2024 Thyroxine measurement [facility] Start: 10-22-2024 [facility] Start: 05-07-2022 CT Chest W contrast IV [facility] Start: 05-07-2022 CT of thorax with contrast Chest WIT H Contrast [facility] Start: 05-02-2022 Liquid based cervica l cytology screening [facility] CT Chest W contrast IV [facility] Glucose [Mass/volume ] in Serum or Plasma [facility] Lipid 1996 panel - S yanick or Plasma [facility] Magnesium [Mass/volu me] in Serum or Plasma [facility] Path report.final Dx Spec [facility] T4 free measurement [facility] Thyroid stimulating hormone measurement [facility] Thyroperoxidase Ab [Units/volume] in Serum or Plasma [facility] US Thyroid gland [facility] Vitamin D, 25-hydrox y measurement [facility] Immunizations Immunization Date Immunization Notes Care Provider Fa cility 03-25-2022 tetanus toxoid, redu alcides diphtheria toxoid, and acellular pertussis vaccine, adsorbed NATY Lyons NP [facility] Payers Date Payer Category Payer Self-pay [id number] 2024 Unknown [id number] Private Health Insurance [facility] [id number] Unknown [id number] Unknown [id number] Unknown [id number] Unknown [id number] Unknown [id number] Unknown [id number] Unknown [id number] Unknown [id number] Unknown [id number] 462 Unknown [id number] Social History Date Type Detail Facility Start: 04-18-2022 End: 05-21-2023 Tobacco smoking status PAIS Unknown if ever smoked [facility] Start: 1975 Sex Assigned At Female [facility] Start: 05-21-2023 [facility] Start: 05-27-2024 End: 05-27-2024 Sex Female (finding) [facility] Sex Female [facility] Clinical Notes 05-02-2022 to 11-02-2024 Note Date & Type Note Facility 11-02-2024 Radiology Diagnostic study note [facility] Imaging Services [address] [place], [place] [address] Thyroid MR#: [id number] Acct: [id number] Name: SHAMIKA THOMAS Rep #: [id number] : 1975 F 49 From: Pierre Staley MD PCP: Dr. Freya Lilly MD Status: REG CLI Study:Thyroid Date of Exam: 10/30/24 Exam# [id number] Ordering Dr: Brenton Noe PROCEDURE: THYROID 10/30/2024 REASON FOR EXAM: THYROID ENLARGEMENT TECHNIQUE: Procedure Code: USTHY Modality: US Procedure: THYROID COMPARISON: None FINDINGS: Right thyroid lobe size: 5.9 cm 1.5 cm 1.3 cm Left thyroid lobe size: 5.5 cm 1.6 cm 1.2 cm Isthmus: 0.2 cm Background parenchymal echotexture is homogeneous. Nodules: Scattered subcentimeter colloid cysts in the right lobe. . Lobe: Left, Location: Lateral and inferior, Size: 0.7 cm 0.4 cm x 0.4 cm, Stability: N/A Composition: Mixed cystic and solid (+1) Echogenicity: Hypoechoic (+2) Margin: Smooth (+0) Shape: Wider than tall (+0) Echogenic Foci: None (+0) TI-RADS: 3 Similar-appearing nodule is seen in the midpole measuring 6 mm x 5 mm x 2 mm. Tie rads category 3. US/Thyroid IMPRESSION: Mild enlargement of the thyroid gland. There are 2 subcentimeter complex nodules in the left lobe of the thyroid as described. TI-RADS category 3. Sonographic follow-up recommended. RECOMMENDATION: Based on most suspicious nodule. Nodule size = largest diameter Only evaluate nodule if =>5 mm. Growth > 20% in 2 dimensions = worsening. Follow up to 4 nodules. Recommend biopsy for no more than 2 nodules. Reading Location: [facility] CC: Dr. Freya Lilly MD; JOSEPH Melchor ~ J2Ee Developer: Signed [facility] 10-22-2024 Evaluation note Diagnosis Onset Date Resolution Thyromegaly acute October, 2024 2:24pm [facility] Work Phone: 1(212) 224-853206-13-2025 Radiology Diagnostic study note [facility] Imaging Services [address] [place] [address] Pelvic w/ Transvaginal MR#: [id number] Acct: [id number] Name: SHAMIKA THOMAS Rep #: [id number] : 1975 F 49 From: Pierre Staley MD PCP: Dr. Freya Lilly MD Status: REG CLI Study:Pelvic w/ Transvaginal Date of Exam: 07/21/24 Exam# [id number] Ordering Dr: Dilma Hawkins RADIOLOGIST DIAGNOSTIC [facility]IST [facility]AGNOST[facility]-C PROCEDURE: PELVIC W/ TRANSVAGINAL REASON FOR EXAM: [...] posterior fundal portion of the uterus suggestive ofpossible fibroid. This measures 3.3 cm x 3.9 [...] cysts in the right ovary. Reading Location: [id number] CC: NATY Hawkins; Dr. Freya Lilly MD ~ J2Ee Developer: Signed [facility]04-15-2025 Evaluation note* Diagnosis Onset Date Resolution Status Admit Date Postmenopausal bleeding acute A pril 2024 2:30pm Encounter for routine gynecological examination noneactive May 25, 2024 2:30pm [facility] Work Phone: 1(814) 837-166704-15-2025 Evaluation note* Diagnosis Onset Date Resolution Status Admit Date Postmenopausal bleeding acute A pril 2024 2:30pm Encounter for routine gynecological examination noneactive May 25, 2024 2:30pm Fatigue acute May 31 2:58pm Postmenopausal bleeding acute A pril 2024 2:58pm [facility] Work Phone: [phone] 146-331703-23-2023 NotePap Smear Specimen AdequacyMarch 2022 5:09pmComment.Satisfactory for evaluation. Endocervical and/or squamous metaplasticcells (endocervical component)are present.[facility] INTER[facility]ACED A#[id number] Grove City Methodist HospitalComment on above:Satisfactory for evaluation. 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 EST CARE Reason for Visit Immunization decline d Screening for colon cancer Screening for cardiovascular condition Establishing care with new doctor, encounter for Low hemoglobin Supraclavicular adenopathy [facility] Work Phone: Evaluation note* Diagnosis Onset Date Resolution Status Immunization declined noneac tive Screening for colon cancer n oneactive Screening for cardiovascular condition noneactive Establishing care with new doctor, encounter for noneactive Low hemoglobin noneactive Supraclavicular adenopathy n oneactive [facility] Work Phone: Evaluation note* Diagnosis Onset Date Resolution Status Immunization declined noneac tive Screening for colon cancer n oneactive Screening for cardiovascular condition noneactive Establishing care with new doctor, encounter for noneactive Low hemoglobin noneactive Supraclavicular adenopathy n oneactive ASCUS of cervix with negative high risk HPV acute Encounter for routine gynecological examination noneactive [facility] Work Phone: Evaluation note* Diagnosis Onset Date Resolution Status Concern about appearance of breast resolved Fatigue acute Hypercholesteremia acute Encounter for routine gynecological examination noneactive [facility] Work Phone: Evaluation note* Diagnosis Onset Date Resolution Status Admit Date Thyromegaly acute October 2:24pm [facility] Work Phone: Reason for referral (narrative)No reason for referral information availableWOhioHealth Grove City [facility] Work Phone: Family History No Family [...] Will No February 22 11:17am Power of Inventory Control Coordinator No February 22, 2021 11:17am Advance Directive Response Recorded Date/ Time Living Will No February 04, 023 10:00am Power of Inventory Control Coordinator No February 04, 2023 10:00am Chief Complaint and Reason for Visit Chief Complaint RADIOLOGIST DIAGNOSTIC EST CARE screening mammogram 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 ENLARGED LYMPH NODE Reason for Visit Immunization decline d Screening for colon cancer Screening for cardiovascular condition Establishing care with new doctor, encounter for Low hemoglobin Supraclavicular adenopathy ASCUS of cervix with negative high risk HPV Encounter for routine gynecological examination Chief Complaint left breast pain and thickness 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 Reason for Visit Concern about appear ance of breast Fatigue Hypercholesteremia Encounter for routine gynecological examination Chief Complaint left breast pain and thickness 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 Reason for Visit Concern about appear ance of breast Fatigue Hypercholesteremia Encounter for routine gynecological examination Chief Complaint Admit Date 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) May 25, 2024 2:3 0pm screen for breast cancer May 25 3:19pm Reason for Visit Admit Date Postmenopausal bleeding May 25, 2024 2:30pm Encounter for routine gynecological exam ination May 25, 2024 2:30pm Chief Complaint Admit Date 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 Freya Lilly MD Primary Care Provider Active Team Status: Inactive Member Role Status Dates Mimi Lyons RADIOLOGIST DIAGNOSTIC, RADIOLOGIST DIAGNOSTIC-C Primary Care Provider, Referr ing Provider Active Dr. Freya Lilly MD Attending Provider Active Team Status: Inactive Member Role Status Dates Dr. Freya Lilly MD Primary Care Pro vider, Attending Provider, Referring Provider Active Team Status: Inactive Member Role Status Dates Mimi Lyons RADIOLOGIST DIAGNOSTIC, RADIOLOGIST DIAGNOSTIC-C Referring Provider Active Dilma Hawkins RADIOLOGIST DIAGNOSTIC, RADIOLOGIST DIAGNOSTIC-C Attending Provider Active Dr. Freya Lilly MD Primary Care Provider Active Team Status: Inactive Member Role Status Dates Dimla Hawkins RADIOLOGIST DIAGNOSTIC, RADIOLOGIST DIAGNOSTIC-C Attending Provider, Referring Provider Active Dr. Freya [...] Provider, Referri ng Provider Active Dilma Hawkins RADIOLOGIST DIAGNOSTIC, RADIOLOGIST DIAGNOSTIC-C Attending Provider Active Team Status: Inactive Member Role Status Dates Dr. Freya Lilly MD Primary Care Provider Active Dr. Cee Heck MD Attending Provider, Referr ing Provider Active Team Status: Inactive Member Role Status Dates Dr. Freya Lilly MD Primary Care Provider Active Dilma Hawkins RADIOLOGIST DIAGNOSTIC, RADIOLOGIST DIAGNOSTIC-C Attending Provider, Referring Provider Active Team Status: Active Member Role Status Dates Dr. Freya Lilly MD Primary Care Provider Active Team Status: Inactive Member Role Status Dates Dr. Freya Lilly MD Primary Care Provider Active Start: May 25, 2024 End: May 25, 2024 Dr. Freya Lilly MD Referring Provider Active Start: May 25, 2024 End: May 25, 2024 Dilma Hawkins RADIOLOGIST DIAGNOSTIC, RADIOLOGIST DIAGNOSTIC-C Attending Provider Active Start: May 25, 2024 End: May 25, 2024 Team Status: Inactive Member Role Status Dates Dr. Freya Lilly MD Primary Care Provider Active Start: May 25, 2024 End: May 25, 2024 Dilma Hawkins RADIOLOGIST DIAGNOSTIC, RADIOLOGIST DIAGNOSTIC-C Attending Provider Active Start: May 25, 2024 End: May 25, 2024 Dilma Hawkins RADIOLOGIST DIAGNOSTIC, RADIOLOGIST DIAGNOSTIC-C Referring Provider Active Start: May 25, 2024 End: May 25, 2024 Team Status: Active Member Role Status Dates Dr. Freya Lilly MD Primary Care Provider Active Start: May 25, 2024 Dilma Hawkins RADIOLOGIST DIAGNOSTIC, RADIOLOGIST DIAGNOSTIC-C Attending Provider Active Start: May 25, 2024 Dilma Hawkins RADIOLOGIST DIAGNOSTIC, RADIOLOGIST DIAGNOSTIC-C Referring Provider Active Start: May 25, 2024 Team Status: Inactive Member Role Status Dates Dr. Freya Lilly MD Primary Care Provider Active Start: May 31, 2024 End: May 31, 2024 Dr. Freya Lilly MD Referring Provider Active Start: May 31, 2024 End: May 31, 2024 Dilma Hawkins RADIOLOGIST DIAGNOSTIC, RADIOLOGIST DIAGNOSTIC-C Attending Provider Active Start: May 31, 2024 End: May 31, 2024 Team Status: Inactive Member Role Status Dates Dr. Freya Lilly MD Primary Care Provider Active Start: May 31, 2024 End: May 31, 2024 Dilma Hawkins RADIOLOGIST DIAGNOSTIC, RADIOLOGIST DIAGNOSTIC-C Attending Provider Active Start: May 31, 2024 End: May 31, 2024 Dilma Hawkins RADIOLOGIST DIAGNOSTIC, RADIOLOGIST DIAGNOSTIC-C Referring Provider Active Start: May 31, 2024 End: May 31, 2024 Team Status: Inactive Member Role Status Dates Dr. Freya Lilly MD Primary Care Provider Active Start: June 03, 2024 End: June 03, 2024 Dilma Hawkins RADIOLOGIST DIAGNOSTIC, RADIOLOGIST DIAGNOSTIC-C Attending Provider Active Start: June 03, 2024 End: June 03, 2024 Dilma Hawkins RADIOLOGIST DIAGNOSTIC, RADIOLOGIST DIAGNOSTIC-C Referring Provider Active Start: June 03, 2024 End: June 03, 2024 Team Status: Inactive Member Role Status Dates Dr. Freya Lilly MD Primary Care Provider Active Start: July 21, 2024 End: July 21, 2024 Dilma Hawkins RADIOLOGIST DIAGNOSTIC, RADIOLOGIST DIAGNOSTIC-C Attending Provider Active Start: July 21, 2024 End: July 21, 2024 Dilma Hawkins RADIOLOGIST DIAGNOSTIC, RADIOLOGIST DIAGNOSTIC-C Referring Provider Active Start: July 21, 2024 End: July 21, 2024 Team Status: Active Member Role/Relationship Status Dates Dr. Freya Lilly MD Primary Care Provider Active Team Status: Inactive Member Role/Relationship Status Dates Dr. Freya Lilly MD Primary Care Provider Active Start: July 21, 2024 End: July 21, 2024 Dilma Hawkins RADIOLOGIST DIAGNOSTIC, RADIOLOGIST DIAGNOSTIC-C Attending Provider Active Start: July 21, 2024 End: July 21, 2024 Dilma Hawkins RADIOLOGIST DIAGNOSTIC, RADIOLOGIST DIAGNOSTIC-C Referring Provider Active Start: July 21, 2024 End: July 21, 2024 Team Status: Inactive Member Role/Relationship Status Dates Dr. Freya Lilly MD Primary Care Provider Active Start: October 22, 2024 End: October 22, 2024 Dr. Freya Lilly MD Referring Provider Active Start: October 22, 2024 End: October 22, 2024 Caleb RUIZ, PA Attending Provider Active St art: October 22, 2024 End: October 22, 2024 Team Status: Active Member Role/Relationship Status Dates Dr. Freya Lilly MD Primary care physician Active Team Status: Inactive Member Role/Relationship Status Dates Dr. Freya Lilly MD Primary care physician Active Start: July 21, 2024 End: July 21, 2024 Dilma Hwakins RADIOLOGIST DIAGNOSTIC, RADIOLOGIST DIAGNOSTIC-C Attending physician Active Start: July 21, 2024 End: July 21, 2024 Dilma Hawkins RADIOLOGIST DIAGNOSTIC, RADIOLOGIST DIAGNOSTIC-C Referring Provider Active Start: July 21, 2024 End: July 21, 2024 Team Status: Inactive Member Role/Relationship Status Dates Dr. Freya Lilly MD Primary care physician Active Start: October 22, 2024 End: October 22, 2024 Dr. Freya Lilly MD Referring Provider Active Start: October 22, 2024 End: October 22, 2024 JOSEPH Dior Attending physician Active S tart: October 22, 2024 End: October 22, 2024 Team Status: Inactive Member Role/Relationship Status Dates Dr. Freya Lilly MD Primary care physician Active Start: October 30, 2024 End: October 30, 2024 JOSEPH Dior Attending physician Active S tart: October 30, 2024 End: October 30, 2024 JOSEPH Dior Referring Provider Active St art: October 30, 2024 End: October 30, 2024 Goals (unrecognized section and content) Goals [...] ized section and content) DATE CREATED AUTHOR 11/16/2024 [facility] FOR RECORDS PERTAINING TO PATIENTS [...] BE BASED ON THE PRIMARY CLINICAL RECORDS. [employer] [facility]. provides no warranty or guarantee of the accuracy or completeness of information in this document.
[2024-12-03 19:05] LABS: T4 Total, Thyroxin 7.4 ug/dL (4.8-13.9)
== END | disposition home or self-care (01) ==
LOC: MTLAB 14:45
PROVIDERS: PCP Internal Medicine; Referring Provider Physician Assistant; Visit Provider Physician Assistant
DX: E01.0 Iodine-deficiency related diffuse (endemic) goiter (principal)
CPT/HCPCS: 36415; 84436; 84439; 84443; 86376; 86800